=== PATIENT | female | born 1940 | race Caucasian/White ===

== ENCOUNTER → 2016-11-20 | Outpatient (CLI) | payer MEDICARE, OTHER ==
[~2016-11-20] MED LIST: ASPI-892 PO; CEFU250T PO; GLIM4TAB PO; INSU100V16 SQ; INSU100V4 IV; INSU100V5 SQ; IRB150T PO; MECL-124 PO; SITA100T PO; SMV20T PO
--- OUTSIDE RECORDS SUMMARY | 2016-11-20 10:37 | XMS REPORT | Continuity of Care Document ---
Author Author [facility] Organization [facility] Address Unknown Phone Unavailable Care Team Providers Care Extension Specialist Name Role Phone JYOTI CHAIREZ DO PCP Insurance Providers Payer Name Policy Number Subscriber Name Relationship [employer] [id number] Charisse Matos 18 Self / Same As [facility] [employer] [facility] [id number] Vel Matos E 01 Advance Directives Directive Response Recorded Date/Time Advance Directives No 04/26/15 10:21pm Resuscitation Status Full Code 04/26/15 10:21pm Problems Medical Problems Problem Onset Date Status Diabetes mellitus Unknown Active Hyperglycemia Unknown Active Medications Medication Dose Route Sig Days/Qty Instructions Order Date Discontinued Date Status Irbesartan 150 Mg PO DAILY 03/31/14 Active Simvastatin 20 Mg PO DAILY 03/31/14 Active Aspirin 81 Mg PO DAILY 03/31/14 Active Meclizine HCl 25 Mg PO THREE TIMES A DAY 03/31/14 Active Glimepiride 4 Mg PO TWICE A DAY 03/31/14 Active Sitagliptin Phosphate 100 Each PO DAILY 03/31/14 Active Insulin Human Regular 300 Units IV DIRECTED 1 Qty 03/31/14 Active Social History Social History Problem Response Recorded Date/Time Alcohol Use Denies Use 04/26/2015 10:21pm Recreational Drug Use No 04/26/2015 10:21pm Recent Foreign Travel No 04/26/2015 10:12pm Recent Infectious Disease Exposure No 04/26/2015 10:12pm Hospitalization with Isolation Denies 04/26/2015 10:12pm Smoking Status Never a Smoker 04/26/2015 10:21pm Query Response Start Date Stop Date Smoking Status Never a Smoker Hospital Discharge Instructions No hospital discharge instructions. Plan of Care No plan of care. Functional Status No functional status results. Allergies, Adverse Reactions, Alerts Allergen Type Severity Reaction Status Last Updated No Known Drug Allergies Active 03/31/14 Immunizations No immunization records. Vital Signs Acute Vital Signs Vital Response Date/Time Temperature (Fahrenheit) 98.1 degrees F (97.6 - 99.5) Temperature (Calculated Celsius) 36.43245 degrees C (36.4 - 37.5) Temperature Source Temporal Pulse Rate (adult) 107 bpm (60 - 90) Respiratory Rate 20 bpm (12 - 24) O2 Sat by Pulse Oximetry 97 % (88 - 100) Blood Pressure 171/70 mm Hg Pain Pain Intensity 0 Height (Feet) 5 feet Height (Calculated Centimeters) 152.569835 cm Weight (Pounds) 164 pounds Weight (Calculated Kilograms) 74.242424 kilograms Height 5 ft 0 in Weight 164 lb Body Mass Index 32.0 kg/m^2 Results Laboratory Results Test Name Result Units Flags Reference Collection Date/Time Result Date/ Time Comments White Blood Count 9.0 10^3/uL 4.3-11.0 04/26/2015 10:pm 04/26/2015 10 :24pm Red Blood Count 4.05 10^6/uL L 4.35-5.85 04/26/2015 10:04/26/2015 10 :24pm Hemoglobin 13.1 G/DL 11.5-16.0 04/26/2015 10:04/26/2015 10:24pm Hematocrit 39 % 35-52 04/26/2015 10:04/26/2015 10:24pm Mean Corpuscular Volume 97 FL 80-99 04/26/2015 10:04/26/2015 10: 24pm Mean Corpuscular Hemoglobin 32 PG 25-34 04/26/2015 10:04/26/2015 10:24pm Mean Corpuscular Hemoglobin Concent 33 G/DL 32-36 04/26/2015 10: 10:24pm Red Cell Distribution Width 12.8 % 10.0-14.5 04/26/2015 10:2014 10:24pm Platelet Count 325 10^3/uL 130-400 04/26/2015 10:pm 04/26/2015 10: 24pm Mean Platelet Volume 9.2 FL 7.4-10.4 04/26/2015 10:pm 04/26/2015 10: 24pm Neutrophils (%) (Auto) 82 % H 42-75 04/26/2015 10:04/26/2015 10: 24pm Lymphocytes (%) (Auto) 15 % 12-44 04/26/2015 10:pm 04/26/2015 10: 24pm Monocytes (%) (Auto) 4 % 0-12 04/26/2015 10:04/26/2015 10:24pm Eosinophils (%) (Auto) 0 % 0-10 04/26/2015 10:04/26/2015 10:24pm Basophils (%) (Auto) 0 % 0-10 04/26/2015 10:04/26/2015 10:24pm Neutrophils # (Auto) 7.3 X 10^3 1.8-7.8 04/26/2015 10:04/26/2015 10:24pm Lymphocytes # (Auto) 1.3 X 10^3 1.0-4.0 04/26/2015 10:04/26/2015 10:24pm Monocytes # (Auto) 0.3 X 10^3 0.0-1.0 04/26/2015 10:pm 04/26/2015 10: 24pm Eosinophils # (Auto) 0.0 10^3/uL 0.0-0.3 04/26/2015 10:04/26/2015 10:24pm Basophils # (Auto) 0.0 10^3/uL 0.0-0.1 04/26/2015 10:04/26/2015 10 :24pm Sodium Level 135 MMOL/L 135-145 04/26/2015 10:pm 04/26/2015 10:38pm Potassium Level 4.3 MMOL/L 3.6-5.0 04/26/2015 10:pm 04/26/2015 10: 38pm Chloride Level 103 MMOL/L 98-107 04/26/2015 10:04/26/2015 10:38pm Carbon Dioxide Level 22 MMOL/L 21-32 04/26/2015 10:17pm 04/26/2015 10: 38pm Blood Urea Nitrogen 25 MG/DL H 7-18 04/26/2015 10:17pm 04/26/2015 10: 38pm Creatinine 1.68 MG/DL H 0.60-1.30 04/26/2015 10:17pm 04/26/2015 10:38pm BUN/Creatinine Ratio 15 04/26/2015 10:17pm 04/26/2015 10:38pm Estimat Glomerular Filtration Rate 30 04/26/2015 10:172014 10:38pm GFR INTERPRETIVE DATA UNITS FOR ESTIMATED GFR (eGFR): mL/min/1.73 M2 REFERENCE RANGE FOR ESTIMATED GFR (eGFR) eGFR NORMAL eGFR >60 MODERATELY DECREASED eGFR 30-59 SEVERLY DECREASED eGFR 15-29 KIDNEY FAILURE <15 (OR DIALYSIS) Glucose Level 502 MG/DL 70-105 04/26/2015 10:17pm 04/26/2015 10:38pm RESULTS CALLED TO PABLO AT 2238. RESULTS READ BACK: YES. Glucometer 428 MG/DL 70-110 04/26/2015 10:16pm 04/26/2015 10:32pm Calcium Level 9.5 MG/DL 8.5-10.1 04/26/2015 10:17pm 04/26/2015 10:38pm Total Bilirubin 1.0 MG/DL 0.1-1.0 04/26/2015 10:17pm 04/26/2015 10: 38pm Alkaline Phosphatase 163 U/L H 40-136 04/26/2015 10:pm 04/26/2015 10: 38pm Aspartate Amino Transf (AST/SGOT) 14 U/L 5-34 04/26/2015 10:2014 10:38pm Alanine Aminotransferase (ALT/SGPT) 14 U/L 0-55 04/26/2015 10:17pm 10:38pm Total Protein 7.7 G/DL 6.4-8.2 04/26/2015 10:17pm 04/26/2015 10:38pm Albumin 3.9 G/DL 3.2-4.5 04/26/2015 10:17pm 04/26/2015 10:38pm Procedures No known history of procedures. Encounters Encounter Location Date/Time Departed Emergency Room [facility] 04/26/15 10:09pm Recent Diagnosis
--- NOTE | 2016-11-20 13:35 | Diagnostic Imaging Report ---
Bilateral screening mammogram. The current study was also evaluated with a Computer Aided Detection (CAD) system. INDICATION: Screening. No current complaints stated on the questionnaire. COMPARISON: 11/29/2015. FINDINGS: The breasts are composed of heterogeneously dense parenchyma which may decrease mammographic sensitivity. There are multiple scattered benign-appearing calcifications. Allowing for technique and positional differences, no suspicious change is seen. IMPRESSION: No significant change. ACR BI-RADS Category 2: Benign findings. Result letter will be mailed to the patient. Note: At least 10% of breast cancer is not imaged by mammography. Dictated by: Dictated on workstation # [id number]
== END ==
LOC: RAD 10:33
PROVIDERS: ATTEND Nurse Practitioner Family
DX: Z12.31 Encounter for screening mammogram for malignant neoplasm of breast (principal)

== ENCOUNTER 2017-05-19 09:47 | Outpatient (CLI) | payer MEDICARE, OTHER ==
[~2017-05-19] VITALS: Ht 152.4 cm; Wt 72.6 kg
[2017-05-19] MEDS ORDERED: LEVO75TA6 PO (10:03)
[2017-05-19] MEDS ORDERED: CYAN10006 PO (10:03)
[2017-05-19 10:07] VITALS: BP 142/71
== END 2017-05-19 10:44 | disposition home or self-care (01) ==
LOC: PREOP 09:47
PROVIDERS: ATTEND Orthopaedic Surgery
DX: Z01.818 Encounter for other preprocedural examination (principal); Z11.2 Encounter for screening for other bacterial diseases; M23.204 Derangement of unspecified medial meniscus due to old tear or injury, left knee; M17.12 Unilateral primary osteoarthritis, left knee
CPT/HCPCS: 87081

== ENCOUNTER 2017-05-26 06:00 | Day surgery (SDC) | payer MEDICARE, OTHER ==
--- NOTE | 2017-05-18 08:59 | HISTORY AND PHYSICAL ---
DATE OF ADMISSION: 05/26/2017 Outpatient surgery for left knee arthroscopy. HISTORY: The patient is a 77-year-old female with moderate left knee osteoarthritis. She has undergone treatment with injections with Synvisc, as well as steroid. She reports catching and locking and swelling in her knee. She does not desire total knee arthroplasty. She understands an arthroscopy can help with her mechanical symptoms and will not alleviate her arthritic symptoms. Due to functional impairment, the patient has elected to proceed with surgical intervention. REVIEW OF SYSTEMS: No chest pain, no shortness of breath. No dysuria. PAST MEDICAL HISTORY: 1. Allergic rhinitis. 2. Back pain. 3. Osteoarthritis. PAST SURGICAL HISTORY: 1. Tonsillectomy. 2. Appendectomy. 3. Cholecystectomy. 4. Herniorrhaphy. 5. Vein stripping. FAMILY HISTORY: Noncontributory. PRIMARY CARE PROVIDER: Dr. Mcguire. MEDICATIONS: 1. Insulin. 2. Avapro. 3. Zocor. 4. Ecotrin. 5. Meclizine. 6. Glimepiride. 7. Januvia. 8. Levothyroxine. ALLERGIES: No known drug allergies. SOCIAL HISTORY: The patient denies alcohol, tobacco use. PHYSICAL EXAMINATION: The patient well-developed, well-nourished, in no acute distress. HEENT: Normocephalic, atraumatic. Pupils are equal, round, and reactive, oropharynx is clear. NECK: Supple. No lymphadenopathy. LUNGS: Clear to auscultation bilaterally. HEART: Regular rate and rhythm. ABDOMEN: Soft, nontender, nondistended. EXTREMITY EXAM: The left knee demonstrates a slight effusion. She is tender along her medial joint line and has pain medially with Gail's. She has patellofemoral crepitus and pain with patellar loading. Range of motion 0/2/125. She is ligamentously stable in all planes. 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 PLAN: Left knee arthroscopy, partial meniscectomy and chondroplasty. The risks, benefits, options, ramifications and recovery have been discussed at length with the patient and she understands wishes to proceed. Job ID: [id number] Dictated Date: 05/17/2017 15:25:39 Grounds Maintenance Supervisor Date: 05/18/2017 08:46:44/zonia
[~2017-05-26] VITALS: Ht 152.4 cm; Wt 72.6 kg
[~2017-05-26 06:00] MED LIST changes: +CYAN10006 PO; +LEVO75TA6 PO
[2017-05-26] MEDS ORDERED: fentaNYL INJECTION 100 MCG/2 ML AMP ONE (06:31)
[2017-05-26] MEDS ORDERED: proPOfol 200 MG/20 ML (DIPRIVAN) VIAL IV ONE (06:31)
[2017-05-26] MEDS ORDERED: NS (IVPB) 50 ML ONE (06:31)
[2017-05-26] MEDS ORDERED: LACTATED RINGERS 1,000 ML IV ONE (06:31)
[2017-05-26] MEDS ORDERED: ceFAZolin 1,000 MG (ANCEF) VIAL ONE (06:31)
[2017-05-26] MEDS ORDERED: SEVOFLURANE (ULTANE) 15 ML INHAL SOLN ONE ×3 (06:31→07:54)
[2017-05-26] MEDS ORDERED: LIDOCAINE 2% 20 ML (XYLOCAINE) VIAL ONE (06:31)
[2017-05-26] MEDS ORDERED: MIDAZOLAM 2 MG/2 ML (VERSED) VIAL ONE (06:32)
[2017-05-26] MEDS ORDERED: ONDANSETRON 4 MG/2 ML (SDV) Z0FRAN ONE ×2 (06:37→09:00)
[2017-05-26] MEDS ORDERED: DEXAMETHASONE PF 10 MG/ML (DECADRON) VIAL ONE (06:37)
[2017-05-26] MEDS ORDERED: LACTATED RINGERS 1,000 ML IV PRN (06:42)
[2017-05-26] MEDS ORDERED: ceFAZolin 1 GM/NS 50 ML IVPB IV ONE ×2 (07:00)
[2017-05-26 07:01] VITALS: BP 146/84
[2017-05-26] MEDS ORDERED: morphine PF (DURAMORPH) 10 MG/10 ML AMP ONE (07:07)
[2017-05-26] MEDS ORDERED: BUPIVACAINE 0.25% 30 ML (SENSORCAINE) VIAL ONE (07:07)
--- NOTE | 2017-05-26 07:26 | Progress Note-Pre Operative ---
Pre-Operative Progress Note H&P Reviewed The H&P was reviewed, patient examined and no changes noted. Date Seen by Provider: May 26, 2017 Time Seen by Provider: 07:11 Date H&P Reviewed: May 26, 2017 Time H&P Reviewed: 07:11 Pre-Operative Diagnosis: left knee medial meniscal tear and chondromalacia CORDELIA VELEZ MD May 26, 2017 07:26
--- NOTE | 2017-05-26 07:27 | Progress Note-Post Operative ---
Post-Operative Progess Note Surgeon (s)/Photographic Artist (s) Surgeon CORDELIA VELEZ MD Photographic Artist: Galen Flynn Pre-Operative Diagnosis left knee medial meniscal tear and chondromalacia Post-Operative Diagnosis left knee medial and lateral meniscal tears and chondromalacia of the lateral femoral condyle and patella Procedure & Operative Findings Date of Procedure 05/26/17 Procedure Performed/Findings left knee arthroscopic partial medial and lateral meniscectomies and chondroplasty of the lateral femoral condyle and patella Anesthesia Type GETA Estimated Blood Loss Estimated blood loss (mL): minimal Specimens/Packing Specimens Removed none Packing: none CORDELIA VELEZ MD May 26, 2017 07:27
[2017-05-26] MEDS ORDERED: HYDROcodone/APAP 5 MG/325 MG (LORTAB) TAB PO PRN (07:30)
[2017-05-26] MEDS ORDERED: fentaNYL INJECTION 100 MCG/2 ML AMP IVP PRN (08:15)
[2017-05-26 09:15] VITALS: BP 113/99
[2017-05-26] MEDS ORDERED: HYDR-3812 PO (09:35)
[2017-05-26 09:45] VITALS: BP 128/58
[2017-05-26 10:15] VITALS: BP 130/61
--- NOTE | 2017-05-26 11:04 | Physical Therapy Ortho Eval ---
PT Orthopedic Evaluation Type of Surgery Knee Scope LEFT knee arthroscopy, medial menisectomy and chondroplasty Prior Level of Function Current Living Status: Alone Locomotion (Upon Admit): Independent Established Durable Medical Eq: Shower Chair, Front Wheeled Walker, Straight Cane Patient has one step to enter the home. She will be going home with a daughter for at least one day to recover. Subjective Subjective Pt reports she has had progressive pain and loss of function in her left knee. Steps Into Home: 1 Steps Accessories: Railing Present Motor Control Motor Control: Motor Control WNL Pt reports her knee feels better than pre surgery. ROM ROM: WFL, except focal deficit left knee flexion to 90 deg, ext -5 degrees Strength Strength: Gen Weak,No Focal Deficit quads and hams (L) knee 4/5 Transfer Transfers (B, C, W/C) (FIM): 6 Patient able to get in and out of bed without assistance. Used a FWW to make pivot transfer. She was able to make a pivot transfer without assistive device at stand by level. Gait Gait Assistive Device: FWW, Handheld Assist demonstrated safe ambulation with FWW and with hand held assistance. Weight Bearing Restriction: Weight Bearing/Tolerated Location Restriction: L LE Distance (FIM): 2=001-30 ft Distance: 50ft Gait Level of Assist: 5 Summary/Comments stand by supervision for steadying during turns. Treatment Rendered Treatment: Therapeutic Exercises, Gait Train, Step Train, Issued Written HEP Exercise Instruction: Quad Sets, Straight Leg Raise, Heel Slides issued a written home program Assessment/Goals Goal Time Frame: 1 Visit Understands HEP: Yes Safe Ambulation: Yes Plan Treatment Plan: Gait, Safety, Therapeutic Exercise Treatment Duration: 1 visit Visits Per Week: 1 PT/Family Agrees to Plan: Yes Time Time In: 1030 Time Out: 1050 Total Billed Treatment Time: 20 Billed Treatment Time visit, eval low complexity Yes PT/OT Therapy GCodes Therapy Functional Limitation: Physical Therapy Functional Limitation-Current Charge Code: MOBCUR Modifier: CI Functional Limitation-Goal Charge Code: MOBGOAL Modifier: CI Functional Limitation-D/C Charge Codes: MOBDC Modifier: CI KALANI MITCHELL PT May 26, 2017 11:04
--- NOTE | 2017-05-27 09:26 | OPERATIVE REPORT ---
PROCEDURE PHYSICIAN: CORDELIA VELEZ DATE OF PROCEDURE: 05/26/2017 PREOPERATIVE DIAGNOSIS: 1. Left knee medial meniscal tear. 2. Left knee chondromalacia of the patella. 3. Left knee chondromalacia of the medial femoral condyle. POSTOPERATIVE DIAGNOSIS: 1. Left knee medial meniscal tear. 2. Left knee lateral meniscal tear. 3. Left knee chondromalacia, lateral femoral condyle. 4. Left knee chondromalacia of the patella. PROCEDURE: 1. Left knee arthroscopic partial medial meniscectomy. 2. Left knee arthroscopic partial lateral meniscectomy. 3. Left knee arthroscopic chondroplasty of the lateral femoral condyle. 4. Left knee arthroscopic chondroplasty of the patella. SURGEON: Ana LAUNDRY LABORER: Galen Flynn who assisted throughout the procedure and closed the incisions. ANESTHESIA: General endotracheal by in David Vila CRNA. TOURNIQUET TIME: Not applicable. DRAINS: None. COMPLICATIONS: None. POSTOPERATIVE PLAN: Routine arthroscopy protocol. The patient was transported to the recovery room, awake, in stable condition. STATEMENT OF MEDICAL NECESSITY: The patient is a 77-year-old female with known arthrosis of her left knee. She also complained of catching and locking in her knee. She has undergone treatment with injections, and activity modifications without relief. She elected to proceed with arthroscopy in order to try and obtain some symptomatic relief. She understood that this would not cure her arthritic symptoms and she may also require total knee arthroplasty. Examination under anesthesia revealed range of motion of 0/2/125. No varus valgus laxity. Negative anterior and posterior drawer. No varus valgus laxity. Negative pivot shift. Arthroscopic findings: The patella demonstrated grade 2 chondral flap, superiorly in a 10 x 10 area with grade 4 chondral loss inferiorly in a 15 x 15 area. The trochlea demonstrated diffuse grade 3 chondral loss with no unstable chondral flaps. The medial and lateral gutters were clear. The medial compartment demonstrated diffuse grade 4 chondral loss over the tibial plateau and femoral condyle in 15 x 20 area adjacently on the medial aspect. In addition, there was degenerative tearing of the posterior horn and body of the medial meniscus involving approximately one half of the posterior horn and body. The ACL and PCL were intact. The lateral compartment demonstrated a degenerative tear of the posterior horn of the meniscus involving approximately 1/3rd of the posterior horn. In addition, there were grade 3 chondral flaps over the anterior aspect of the femoral condyle in a 10 x 10 area and diffuse grade 2 chondral changes of the tibial plateau in a 10 x 10 area with no unstable chondral flaps. PROCEDURE: After risks and benefits of the procedure were discussed and questions were answered an informed consent was signed and placed on chart. The operative site was confirmed in the preop holding and initialed by the surgeon. The patient was then transported to the operating room where after adequate general endotracheal anesthetic were obtained, a timeout was called confirming the operative site. Examination under anesthesia was performed with the above findings noted. The left lower extremity was prepped and draped in the usual sterile fashion. The left knee was injected with 60 mL of fluid and a standard inferolateral portal was placed under direct visualization. A medial port was created and the menisci cruciate was carefully probed with the above findings noted. The unstable chondral flaps on the patella were debrided with a shaver back to a stable edge. The scope was redirected into the lateral compartment where the unstable chondral flaps and the lateral femoral condyle were debrided with a shaver back to a stable edge. The posterior horn of the lateral meniscus was debrided with a biter and a shaver, removing approximately 1/3rd of the posterior horn. This was carefully probed with no further tearing or instability noted. The scope was then redirected into the medial compartment where the unstable posterior horn and body medial meniscus were debrided with a biter and the shaver, removing approximately one half of the posterior horn and body. This was carefully probed with no further tearing or instability noted. The knee was copiously irrigated. Port sites closed with 3-0 nylon in simple interrupted fashion. The knee was injected with Duramorph. Port sites were infiltrated with plain Marcaine. A soft dressing applied. The patient was transported to the recovery awake, in stable condition Job ID: [id number] Dictated Date: 05/26/2017 08:10:39 Vending Service Technician Date: 05/27/2017 09:16:37 / zonia
== END 2017-05-26 10:50 | disposition home or self-care (01) ==
LOC: SDC 06:00
PROVIDERS: ATTEND Orthopaedic Surgery
DX: M23.8X2 Other internal derangements of left knee (principal); M22.42 Chondromalacia patellae, left knee; E78.5 Hyperlipidemia, unspecified; E11.9 Type 2 diabetes mellitus without complications; E03.9 Hypothyroidism, unspecified; Z79.4 Long term (current) use of insulin; Z79.899 Other long term (current) drug therapy
CPT/HCPCS: 82962

== ENCOUNTER → 2017-11-22 | Outpatient (CLI) | payer MEDICARE, OTHER ==
[~2017-11-22] MED LIST changes: +ACHD5005 PO
--- NOTE | 2017-11-22 12:22 | Diagnostic Imaging Report ---
INDICATION: Routine screening. Comparison is made to prior study of 11/20/2016 and 11/29/2015. TECHNIQUE: Bilateral CC and MLO 3D mammography was performed. The current study was also evaluated with a Computer Aided Detection (CAD) system. Moderate parenchymal density is identified bilaterally. The overall parenchymal pattern is stable. Benign-appearing nodular density in the upper outer left breast appears stable. There are benign-appearing parenchymal and vascular calcifications bilaterally. No spiculated mass or malignant appearing microcalcifications are identified. The axillae are unremarkable. IMPRESSION: BI-RADS category 2 No mammographic features suspicious for malignancy are identified. ACR BI-RADS Category 2: Benign findings. Result letter will be mailed to the patient. Note: At least 10% of breast cancer is not imaged by mammography. Dictated by: Dictated on workstation # [id number]
== END ==
LOC: RAD 10:29
PROVIDERS: ATTEND Nurse Practitioner Family
DX: Z12.31 Encounter for screening mammogram for malignant neoplasm of breast (principal)
CPT/HCPCS: 77067

== ENCOUNTER 2018-03-09 06:10 | Inpatient (IN) | payer MEDICARE, OTHER ==
--- NOTE | 2018-02-28 17:23 | HISTORY AND PHYSICAL ---
DATE OF SERVICE: DATE OF ADMISSION: 03/09/2018. REASON FOR ADMISSION: Left total knee arthroplasty. This will be for regular inpatient admission. HISTORY OF PRESENT ILLNESS: The patient is a 77-year-old female with progressively worsening left knee osteoarthritis. She has undergone treatment with injections, anti-inflammatories as well as arthroscopy, but reports continued progressive functional impairment with activity limitations. Radiographs reveal severe medial patellofemoral arthrosis. Due to functional impairment and failure to improve with conservative measures, the patient has elected to proceed with surgical intervention. REVIEW OF SYSTEMS: No chest pain, no shortness of breath, no dysuria. PAST MEDICAL HISTORY: Allergic rhinitis, back pain, osteoarthritis, diabetes type 2, hyperlipidemia, hypertension. PAST SURGICAL HISTORY: Tonsillectomy, appendectomy, cholecystectomy, vein stripping, herniorrhaphy and knee arthroscopy. SOCIAL HISTORY: The patient denies alcohol or tobacco use. FAMILY HISTORY: Noncontributory. PRIMARY CARE PROVIDER: Dr. Mcguire. MEDICATIONS: Insulin, Avapro, Zocor, Ecotrin, meclizine, glimepiride, Januvia, levothyroxine, vitamin B12, hydrocodone. ALLERGIES: No known drug allergies. PHYSICAL EXAMINATION: GENERAL: The patient is well developed, well nourished, in no acute distress. HEENT: Normocephalic, atraumatic. Pupils are equal, round and reactive to light. Oropharynx is clear. NECK: Supple, no lymphadenopathy. LUNGS: Clear to auscultation bilaterally. HEART: Regular rate and rhythm. ABDOMEN: Soft, nontender, nondistended. EXTREMITIES: The left knee demonstrates a slight effusion. There is no erythema or warmth. Range of motion is 0/0/120. She is tender along the medial femoral condyle and has pain medially with Gail's. She has to have assistance to rise from a seated position. She ambulates with an antalgic gait. There is no varus valgus laxity. Negative anterior and posterior drawer. IMPRESSION: Severe left knee osteoarthritis, unresponsive to conservative measures. PLAN: Left total knee arthroplasty. The risks, benefits, options, ramifications and recovery were discussed at length with the patient who understands and wishes to proceed. She will require a regular inpatient admission due to pain management, gait abnormalities and weakness. Job ID: [id number] DocumentID: [id number] Dictated Date: 02/28/2018 16:18:21 Supervisor Engine Assembly Date: 02/28/2018 17:22:39 Dictated By: CORDELIA VELEZ MD
[~2018-03-09] VITALS: Ht 152.4 cm; Wt 74.2 kg
[~2018-03-09 06:10] MED LIST changes: +ASPI-999 PO; +MECL-106 PO; +SIMV20TA3 PO; +SITA100T12 PO
[2018-03-09] MEDS ORDERED: fentaNYL INJECTION 100 MCG/2 ML AMP ONE ×2 (06:43→08:06)
[2018-03-09] MEDS ORDERED: MIDAZOLAM 2 MG/2 ML (VERSED) VIAL ONE (06:43)
[2018-03-09] MEDS ORDERED: LIDOCAINE PF 2% 5 ML (XYLOCAINE) VIAL ONE (06:43)
[2018-03-09] MEDS ORDERED: proPOfol 200 MG/20 ML (DIPRIVAN) VIAL IV ONE (06:43)
[2018-03-09] MEDS ORDERED: SEVOFLURANE (ULTANE) 15 ML INHAL SOLN ONE ×7 (06:43→09:13)
[2018-03-09] MEDS ORDERED: ONDANSETRON 4 MG/2 ML (SDV) Z0FRAN ONE ×2 (06:43→09:50)
[2018-03-09] MEDS ORDERED: CEFUROXIME 1.5 GM/NS 100 ML IVPB IV ONE ×2 (06:45)
[2018-03-09] MEDS ORDERED: CATHETER FLUSH 10 ML SYR IV PRN (06:45)
[2018-03-09] MEDS ORDERED: CEFUROXIME INJECTION 1,500 MG in NS (IVPB) 100 ML IV ONE (07:00)
[2018-03-09] MEDS: LACTATED RINGERS 1,000 ML IV PRN ×2 (07:07→08:00)
[2018-03-09 07:12] VITALS: BP 180/90
[2018-03-09] MEDS ORDERED: diphenhydrAMINE 50 MG/ML INJ (BENADRYL) IVP PRN (07:15)
[2018-03-09] MEDS ORDERED: ACETAMINOPHEN 325 MG TABLET/CAPLET (TYLENOL) PO PRN (07:15)
[2018-03-09] MEDS ORDERED: morphine PCA 30 MG/30 ML VIAL IV PRN (07:15)
[2018-03-09] MEDS ORDERED: INTRA-ARTICULAR IU ONE ×5 (07:30)
--- NOTE | 2018-03-09 07:32 | Progress Note-Pre Operative ---
Pre-Operative Progress Note H&P Reviewed The H&P was reviewed, patient examined and no changes noted. Date Seen by Provider: March 09, 2018 Time Seen by Provider: 07:25 Date H&P Reviewed: March 09, 2018 Time H&P Reviewed: 07:25 Pre-Operative Diagnosis: left knee primary osteoarthritits CORDELIA VELEZ MD March 09, 2018 07:32
--- NOTE | 2018-03-09 07:33 | Progress Note-Post Operative ---
Post-Operative Progess Note Surgeon (s)/Quad Stayer (s) Surgeon CORDELIA VELEZ MD Quad Stayer: Galen Flynn Pre-Operative Diagnosis left knee primary osteoarthritits Post-Operative Diagnosis left knee primary osteoarthritis Procedure & Operative Findings Date of Procedure 03/09/18 Procedure Performed/Findings left total knee arthroplasty Anesthesia Type GETA Estimated Blood Loss Estimated blood loss (mL): MINIMAL Specimens/Packing Specimens Removed none Packing: none CORDELIA VELEZ MD March 09, 2018 07:33
[2018-03-09] MEDS ORDERED: OXYC-197 PO (07:34)
--- NOTE | 2018-03-09 07:36 | D/C HH Face to Face Order ---
D/C Face to Face Orders Instructions for Patient Patient Instructions/FollowUp: three weeks Physician to follow Patient: three weeks Discharge Diet for Home: Regular Diet, ADA Diet Patient Data-Allergies,Ht & Wt Patient Allergies: Uncoded Allergies: STEROIDS (Allergy, Intermediate, 02/28/16) Height (Feet): 5 Height (Inches): 0.00 Weight (Pounds): 163 Weight (Ounces): 9.0 Home Health Need/Face to Face Date of Face to Face: March 09, 2018 Clinical Findings: Instability, Muscle weakness, Non or partial weight bearing , Pain with ambulation, Unsteady gait I have seen Pt [id number]: Yes Discharged To: Home Diagnosis/Conditions: left total knee arthroplasty Patient is Homebound due to: Morales fall risk due to instabilty, Pain w/ ambulation Homebound Status Due to the above stated illness, injury or surgical procedure (medical condition or diagnosis) and associated clinical findings, the patient is homebound because of his/her inability to leave home except with aid of a supportive device and/or person AND leaving the home requires a considerable and taxing effort or is medically contraindicated. Pt req the following assistanc: Walker Home Health Nursing Orders Home Health Services Order: Physical Therapy-Evaluate & Treat Home Health Infusion Therapy Line Start Date: March 09, 2018 Line Start Time: 0630 Line Type: Peripheral IV Site Location: Forearm Therapy Orders Therapy Orders: PT to assess for OT Therapy Specific Orders: Eval assistive deivces, Teach enviro modifications/ safety, Gait training, Increase strength/endurance, Restore ROM Certify Stmt I certify that this patient is under my care and that I, a nurse practitioner or a physician; a assistant public defender working with me, had a face to face encounter that - meets the physician face to face encounter requirements with this patient as dated. CORDELIA VELEZ MD March 09, 2018 07:36
[2018-03-09] MEDS ORDERED: morphine INJ 10 MG/ML 1ML (SYR OR VIAL) ONE (09:12)
[2018-03-09] MEDS: morphine INJ 10 MG/ML 1ML (SYR OR VIAL) IVP PRN ×2 (09:53→09:57)
--- NOTE | 2018-03-09 09:59 | Progress Note-Standard ---
Standard Progress Note Progress Notes/Assess & Plan Date Seen by Provider: March 09, 2018 Time Seen by Provider: 09:57 Progress/Assessment & Plan POST OP check no complaints. denies paresthesias radiographs--HW well positioned. No fractures LLE--2 plus DP pulse with brisk cap refill. intact DF and PF of toes and ankle. Sensation intact throughout s/p LTKA mobilize as able CORDELIA VELEZ MD March 09, 2018 09:59
[2018-03-09] MEDS ORDERED: HYDROmorphone 2 MG/ML VIAL (DILAUDID) IVP PRN (10:00)
[2018-03-09] MEDS ORDERED: ONDANSETRON 4 MG/2 ML (SDV) Z0FRAN IVP PRN (10:00)
[2018-03-09 10:20] VITALS: BP 153/67
[2018-03-09] MEDS: ONDANSETRON 4 MG/2 ML (SDV) Z0FRAN IVP PRN ×2 (10:24→15:16)
[2018-03-09] MEDS: SENNA W/DOCUSATE (SENOKOT S) TABLET PO SCH ×2 (10:34→19:53)
[2018-03-09] MEDS ORDERED: PROMETHAZINE INJ 25 MG/ML (PHENERGAN) AMP IVP STA (10:44)
[2018-03-09] MEDS: NS IV 1000 ML 1,000 ML IV SCH ×2 (10:57→23:42)
--- NOTE | 2018-03-09 10:58 | Diagnostic Imaging Report ---
EXAMINATION: Left knee at 9:30 AM. INDICATION: Postop total knee. TECHNIQUE: AP and lateral views were received from the OR. COMPARISON: There are no prior studies available for comparison. FINDINGS: There is a total knee prosthesis in place. The prosthetic components appear to be in good position. There is no fracture or acute bony abnormality evident. There is a fair amount of gas about the knee joint and there are skin daryl on the anterior aspect of the joint. IMPRESSION: Stable postoperative left knee. Dictated by: Dictated on workstation # [id number]
[2018-03-09] MEDS: PROMETHAZINE INJ 25 MG/ML (PHENERGAN) AMP IVP PRN ×2 (11:20→19:46)
[2018-03-09 12:00] VITALS: BP 176/80
[2018-03-09] MEDS: CEFUROXIME INJECTION 750 MG in NS (IVPB) 50 ML IV SCH ×2 (15:16→23:42)
[2018-03-09 15:50] VITALS: BP 143/71
--- NOTE | 2018-03-09 15:50 | Physical Therapy Evaluation ---
PT Evaluation-General Medical Diagnosis Admission Date March 09, 2018 at 06:10 Medical Diagnosis: left TKA Onset Date: March 09, 2018 Therapy Diagnosis Therapy Diagnosis: impaired mobility, strength, endurance, ROM Height/Weight Height (Feet): 5 Height (Inches): 0.00 Weight (Pounds): 163 Weight (Ounces): 9.0 Precautions Precautions/Isolations: Standard Precautions Weight Bear Status Right Lower Extremity: Right Weight Bearing/Tolerated Left Lower Extremity: Left Weight Bearing/Tolerated Referral Physician: Galen Flynn Reason for Referral: Evaluation/Treatment Medical History Pertinent Medical History: DM, HTN, OA Additional Medical History allergic rhinitis, back pain, hyperlipidemia, surg (tonsillectomy, appendectomy , cholecystectomy, vein stripping, herniorrhaphy, knee arthroscopy) Reviewed History: Yes Social History Home: Single Level Current Living Status: Alone Entry Into Home: Stairs With Railing PT Steps Into Home: 2 Prior/Core FIM Prior Level of Function Functional [place] Measure 0=Not Assessed/NA 4=Minimal Assistance 1=Total Assistance 5=Supervision or Setup 2=Maximal Assistance 6=Modified [place] 3=Moderate Assistance 7=Complete [place] Bed Mobility: 7 Transfers (B,C,W/C) (FIM): 7 Gait: 7 patient states she has a single point cane that she used on occasion, but not often PT Evaluation-Current Subjective Patient in bed pre tx, agrees to PT, no complaints of pain. Patient has been nauseated all morning and is still nauseated, she also needs to use the commode. Pt/Family Goals to be independent at home Objective Patient Orientation: Person, Place, Situation Attachments: SCD's, Oxygen, Polar Pack, IV ROM/Strength ROM Lower Extremities left knee flexion 85 degrees, extension 20 degrees from neutral Strength Lower Extremities NT Neuromuscular (Tone, Coordination, Reflexes) NT Sensory Hearing: Functional Sensation Right Lower Extremit: Intact Sensation Left Lower Extremity: Intact Transfers Functional [place] Measure 0=Not Assessed/NA 4=Minimal Assistance 1=Total Assistance 5=Supervision or Setup 2=Maximal Assistance 6=Modified [place] 3=Moderate Assistance 7=Complete [place] Transfers (B, C, W/C) (FIM): 4 Scootin Rollin Supine to/from Sit: 4 Sit to/from Stand: 4 bed t/f WC(FIM only if WC use): 4 Patient needs min assist for bed mobility, supine to sit, transfers. Cues for hand placement. Patient got nauseated immediately upon sitting and had to use the santoyo. Gait Gait (FIM): 1 Distance: 3 Gait Level of Assist: 4 Gait Persons Needed: 1 Gait Assistive Device: FWW Balance Sitting Static: Good Sitting Dynamic: Good Standing Static: Fair Standing Dynamic: Fair Treatment Supine TKA protocol x10 (AP, QS, HS, SAQ, SLR), CPM donned and adjusted to her and set at 60/-2, SCD's also applied Assessment/Needs Patient was very drowsy and nauseated. She has fairly severe impairment in knee extension at this point. Rehab Potential: Fair PT Short Term Goals Short Term Goals Time Frame: March 16, 2018 Transfers (B,C,W/C) (FIM): 5 Gait (FIM): 4 Gait Distance Comment: 150' Gait Assistive Device: FWW PT Plan Problem List Problem List: Activity Tolerance, Functional Strength, Safety, Balance, Gait, Transfer, Bed Mobility, ROM Treatment/Plan Treatment Plan: Continue Plan of Care Treatment Plan: Bed Mobility, Education, Functional Activity Gillian, Functional Strength, Gait, Safety, Therapeutic Exercise, Transfers Treatment Duration: March 16, 2018 Frequency: At least 5 of 7 days/Wk (IRF) Estimated Hrs Per Day: 1.5 hours per day Patient and/or Family Agrees t: Yes Safety Risks/Education Patient Education: Gait Training, Transfer Techniques, Reviewed Use of Ice, Correct Positioning, Safety Issues Teaching Recipient: Patient Teaching Methods: Demonstration, Discussion Response to Teaching: Reinforcement Needed Discharge Recommendations Plan Patient will perform bed mobility and transfer training, balance and endurance training, functional strengthening, stair training, gait training, and education , to improve functional mobility and independence at home. Therapy D/C Recommendations: Home w/ Family Support Time/GCodes Time In: 1500 Time Out: 1530 Total Billed Treatment Time: 30 Total Billed Treatment 1 visit EVRussell 20' EX 10' ELISA GORDON PT March 09, 2018 15:49
--- NOTE | 2018-03-09 18:21 | OPERATIVE REPORT ---
DATE OF SERVICE: 03/09/2018 PREOPERATIVE DIAGNOSIS: Left knee primary osteoarthritis. POSTOPERATIVE DIAGNOSIS: Left knee primary osteoarthritis. PROCEDURE: Left total knee arthroplasty. SURGEON: Zi Velez MD TEST DESIGN ENGINEER: Galen Flynn, who assisted throughout the procedure and closed the incision. ANESTHESIA: General endotracheal by Kaci Duncan CRNA. TOURNIQUET TIME: Approximately 70 minutes at 300 mmHg. ESTIMATED BLOOD LOSS: Minimal. DRAINS: None. COMPLICATIONS: None. POSTOPERATIVE PLAN: Routine protocol. The patient was transferred to the recovery room awake and in stable condition. MATERIALS: MicroPort cemented size 2 femur, cemented size 2+ tibia with a 10 mm insert and cemented size 29 patella. STATEMENT OF MEDICAL NECESSITY: The patient is an 78-year-old female who has had longstanding progressive left knee pain. Radiographs revealed severe medial and patellofemoral arthrosis. She has undergone treatment with arthroscopy, injections and activity modifications without relief and due to functional impairment and failure to improve with conservative measures, the patient elected to proceed with surgical intervention. DESCRIPTION OF PROCEDURE After risks and benefits of the procedure were discussed and questions were answered, and informed consent was signed and placed on the chart. The operative site was confirmed in the preoperative holding area initialed by the surgeon. The patient was then transferred to the operating room and after adequate levels of general endotracheal anesthetic was obtained a timeout was called confirming the operative site. The left lower extremity was then prepped and draped in the usual sterile fashion with the leg elevated and the knee flexed. Tourniquet was inflated to 300 mmHg. A standard anterior approach was utilized. Hemostasis was obtained with cautery. A medial parapatellar arthrotomy was performed leaving 1 cm cuff for later reattachment. A portion of the fat pad was resected. A subperiosteal release was performed on the proximal medial tibia being careful to stay on the bony surface. The ACL was resected. The intramedullary guide was passed into the femur and the distal cutting block was placed. Distal cut was made and the sizer was placed. This was sized to a size 2. The 2 cutting block was placed parallel to the epicondylar axis and cuts were made from posterior to anterior. The trochlear guide was place and trochlear cut was made. Subperiosteal release was then carefully performed on the posterior distal femur, being careful to stay on the bony surface. Intramedullary guide was then passed into the tibia. The cutting block was placed. The drop chau transected the intramedullary axis and the cut was made. The 2+ baseplate was placed and pinned into position. Again, the drop chau transected the intramedullary axis was prepared with a drill and keel punch. The trials were inserted. A 10 mm insert was placed. The patella was then prepared using free hand technique by resecting 10 mm off the undersurface. The peg guide was placed and the peg holes were drilled. The patellar trial was placed. The patella tracked well. Full extension was easily obtained, 120 degrees of flexion with gravity was easily obtained. The patella tracked well. There was no anterior/posterior or medial/lateral laxity in flexion or extension. The trials were removed. The joint was irrigated with pulse lavage. The periarticular block was placed and the posterior capsule, medial and lateral retinaculum and extensor mechanism, subcutaneous tissues. The joint was further irrigated and the bone ends were irrigated and dried. The tibial baseplate was cemented into position. Excess of cement was removed. The superior surface was irrigated and dried and the polyethylene insert was placed. Distal femur was irrigated and dried and the femoral prosthesis was cemented into position removing excessive cement. The knee was brought out into full extension until the cement had cured. The undersurface of the patella was irrigated and dried and the patellar button was cemented into position. This was held in place with cement and cured. Once the cement cured, the knee was taken through range of motion. Full extension was easily obtained 120 degrees of flexion with gravity was easily obtained. The patella tracked well. There was no anterior/posterior or medial/lateral laxity in flexion or extension. The joint was further irrigated with pulse lavage. The arthrotomy was closed with #2 Tevdek in kavlce-jw-glhus interrupted fashion. The knee was then flexed. The repair was stable with a well tracking patella. Subcutaneous tissues were irrigated using a total of 6 liters throughout the procedure. A 0 Vicryl was used for deep subcutaneous tissue, 2-0 Vicryl for the superficial subcutaneous tissue, and daryl used on the skin. A soft dressing was applied. The tourniquet was deflated. The patient was transported to recovery room, awake and in stable condition. Job ID: [id number] DocumentID: [id number] Dictated Date: 03/09/2018 09:23:17 Manager Of Marketing Date: 03/09/2018 18:20:55 Dictated By: ZI VELEZ MD
[2018-03-09 19:05] VITALS: BP 142/72
[2018-03-10] VITALS (7 sets, daily range): BP systolic 114–176; BP diastolic 56–78
[2018-03-10 05:46] LABS: HEMOGLOBIN 11.1 G/DL (11.5-16.0)
--- NOTE | 2018-03-10 07:23 | Anesthesia-General Post-Op ---
General Patient Condition Mental Status/LOC: Same as Preop Cardiovascular: Satisfactory Nausea/Vomiting: Absent Respiratory: Satisfactory Pain: Controlled Complications: Absent Post Op Complications Complications None Follow Up Care/Instructions Patient Instructions None needed. Anesthesia/Patient Condition Patient Condition Patient is doing well, no complaints, stable vital signs, no apparent adverse anesthesia problems. No complications reported per nursing. D/C home per [facility] Criteria: Yes KLAUS JEAN BAPTISTE CRNA March 10, 2018 07:23
--- NOTE | 2018-03-10 07:45 | Progress Note-Standard ---
Standard Progress Note Progress Notes/Assess & Plan Date Seen by Provider: March 10, 2018 Time Seen by Provider: 07:44 Progress/Assessment & Plan POST OP check no complaints. denies paresthesias radiographs--HW well positioned. No fractures LLE--2 plus DP pulse with brisk cap refill. intact DF and PF of toes and ankle. Sensation intact throughout s/p LTKA mobilize as able Final Diagnosis Nausea improved Vital Signs Date Time Temp Pulse Resp B/P (MAP) Pulse Ox O2 Delivery O2 Flow Rate FiO2 03/10/18 04:00 96.4 100 18 162/72 (102) 99 Nasal Cannula 2.00 03/10/18 00:00 98.6 104 17 176/78 (110) 92 Nasal Cannula 3.00 03/09/18 23:41 Nasal Cannula 3.00 03/09/18 19:05 98.8 98 18 142/72 (95) 93 Nasal Cannula 3.00 03/09/18 15:50 98.5 95 18 143/71 (95) 99 Nasal Cannula 3.00 03/09/18 12:00 97.3 94 16 176/80 (112) 99 Room Air 03/09/18 10:20 97.3 87 16 153/67 (95) 98 Room Air I & O 03/10/18 07:00 Intake Total 100 ml Output Total 400 ml Balance -300 ml Laboratory Tests Test 03/09/18 09:27 03/09/18 11:35 03/09/18 15:50 03/09/18 20:50 Range/Units Glucometer 117 H 227 H 227 H 223 H 70-110 MG/DL Test 03/10/18 04:47 03/10/18 07:07 Range/Units Hemoglobin 11.1 L 11.5-16.0 G/DL Hematocrit 33 L 35-52 % Glucometer 245 H 70-110 MG/DL LLE--dressing intact. NVI distally. Neg Reny's s/p LTKA PT/OT CORDELIA VELEZ MD March 10, 2018 07:45
[2018-03-10] MEDS: NS IV 1000 ML 1,000 ML IV SCH ×2 (08:13→13:42)
[2018-03-10] MEDS: ONDANSETRON 4 MG/2 ML (SDV) Z0FRAN IVP PRN (08:29)
[2018-03-10] MEDS: MULTIVIT W/MINERALS TAB (THERAGRAN M) PO SCH (08:31)
[2018-03-10] MEDS: SENNA W/DOCUSATE (SENOKOT S) TABLET PO SCH ×2 (08:31→21:00)
[2018-03-10] MEDS: ENOXAPARIN 30 MG/0.3 ML (LOVENOX) SYR SC SCH ×2 (08:31→20:51)
[2018-03-10] MEDS: ASPIRIN E.C. 81 MG (ECOTRIN) TAB PO SCH ×2 (08:31→09:39)
[2018-03-10] MEDS: oxyCODONE/APAP 5/325MG (PERCOCET 5) TABLET PO PRN ×2 (08:53→13:04)
--- NOTE | 2018-03-10 09:03 | Consultation ---
History of Present Illness History of Present Illness Patient Consulted On(jayson/time) 03/10/18 09:01 Date Seen by Provider: March 10, 2018 Time Seen by Provider: 09:01 Reason for Visit: LEFT KNEE REPLACEMENT History of Present Illness PT IS AN 78 Y/O FEMALE WHO IS KNOWN TO ME FROM CLINIC. SHE HAS CHRONIC OA OF HER KNEES AND DR. VELEZ PERFORMED A TOTAL KNEE REPLACEMENT YESTERDAY. STAFF NOTES THAT HER DIABETES IS NOT WELL CONTROLLED DURING THE NIGHT LAST NIGHT. Allergies and Home Medications Allergies Uncoded Allergies: STEROIDS (Allergy, Intermediate, 02/28/16) Home Medications Aspirin 81 Mg Tab.chew, 81 MG PO DAILY, (Reported) Cyanocobalamin (Vitamin B-12) 1,000 Mcg Tablet, 1,000 MCG PO DAILY, (Reported) Glimepiride 4 Mg Tablet, 4 MG PO DAILY, (Reported) Insulin Aspart 100 Unit/1 Ml Susp, 12 UNIT SQ EVENING MEAL, (Reported) Insulin Determir 1,000 Units/10 Ml Soln, 22 UNITS SQ Q12H, (Reported) Levothyroxine Sodium 75 Mcg Tablet, 75 MCG PO DAILY, (Reported) Meclizine HCl 25 Mg Tablet, 25 MG PO TID, (Reported) Oxycodone HCl/Acetaminophen 1 Each Tablet, 1 EACH PO Q4H Prescribed by: CORDELIA VELEZ on 03/09/18 0734 Simvastatin 20 Mg Tablet, 20 MG PO HS, (Reported) Sitagliptin Phosphate 100 Mg Tablet, 50 MG PO DAILY, (Reported) Patient Home Medication List Home Medication List Reviewed: Yes Past Jcisshw-Mvckyi-Ogvoga Hx Past Med/Social Hx: Reviewed Nursing Past Med/Soc Hx, Reviewed and Corrections made Patient Social History Alcohol Use: Denies Use Recreational Drug Use: No Smoking Status: Never a Smoker Recent Foreign Travel: No Contact w/Someone Who Travel: No Recent Infectious Disease Expo: No Recent Hopitalizations: No Immunizations Up To Date Tetanus Booster (TDap): Unknown Date of Pneumonia Vaccine: May 19, 2013 Date of Influenza Vaccine: Aug 10, 2016 Seasonal Allergies Seasonal Allergies: No Past Medical History Surgeries: Yes (VEIN STRIPPING, HERNIA, BLADDER TIE UP, LEFT KNEE SCOPE) Appendectomy, Gallbladder, Hysterectomy, Tonsillectomy Respiratory: No Cardiac: Yes High Cholesterol, Hypertension Neurological: No Reproductive Disorders: No VASCULAR SPECIALISTS History: Hysterectomy Sexually Transmitted Disease: No HIV/AIDS: No Genitourinary: No UTI-Chronic Gastrointestinal: No Musculoskeletal: Yes (KNEE PROBLEMS, OSTEOARTHRITIS LEFT KNEE) Arthritis Endocrine: Yes Diabetes, Insulin dep HEENT: Yes Loss of Vision: Bilateral Hearing Impairment: Denies Cancer: No Psychosocial: No Integumentary: No Blood Disorders: No Adverse Reaction/Blood Tranf: No (N/A) Family Medical History Reviewed Nursing Family Hx Diabetes, Hypertension Review of Systems-General Constitutional: No chills, No dizziness, No malaise EENTM: No hoarseness, No throat pain Respiratory: No cough, No dyspnea on exertion, No short of breath Cardiovascular: No edema, No palpitations Gastrointestinal: No abdominal pain; nausea, vomiting Genitourinary: No dysuria, No frequency : No Musculoskeletal: joint swelling, muscle weakness Skin: No dryness, No lesions Psychiatric/Neurological: Weakness All Other Systems Reviewed Negative Unless Noted: Yes Physical Exam-General Problems Physical Exam Vital Signs Vital Signs - First Documented 03/09/18 03/09/18 07:12 15:50 Temp 98.9 Pulse 88 Resp 16 B/P (MAP) 180/90 (120) Pulse Ox 96 O2 Delivery Room Air O2 Flow Rate 3.00 Capillary Refill : General Appearance: WD/WN, mild distress ( TO NAUSEA) Eyes: Bilateral Eye Normal Inspection, Bilateral Eye PERRL, Bilateral Eye EOMI HEENT: PERRL/EOMI, pharynx normal Neck: non-tender, supple, normal inspection Respiratory: chest non-tender, lungs clear, normal breath sounds, no respiratory distress Cardiovascular: regular rate, rhythm Gastrointestinal: normal bowel sounds, non tender, soft, no organomegaly, no pulsatile mass Rectal: deferred Back: normal inspection Extremities: normal range of motion, no pedal edema Neurologic/Psychiatric: head trimmer II-XII nml as tested, no motor/sensory deficits, alert, normal mood/affect, oriented x 3 Skin: warm/dry Assessment/Plan Assessment/Plan Admission Diagnosis/Plan LEFT TOTAL KNEE REPLACEMENT HYPOTHYROIDISM DIABETES MELLITUS POST-OPERATIVE NAUSEA AND EMESIS LEFT TOTAL KNEE REPLACEMENT - DEFER TO DR. VELEZ HYPOTHYROIDISM - RESUME HOME MEDICATIONS DIABETES MELLITUS - RESUME HOME MEDICATIONS - CHECK SERIAL FSBS POST-OPERATIVE NAUSEA AND EMESIS - SLOWLY ADVANCE DIET - CONTINUE WITH IV ANTIEMETICS PT REPORTS SHE WILL BE GOING TO STAY WITH HER GRANDSON UPON DISCHARGE Admission Status: Inpatient Order (span 2 midnights) Reason for Inpatient Admission: KNEE REPLACEMENT - NECESSITATES MORE THAN 2 [facility] STAY Clinical Quality Measures DVT/VTE Risk/Contraindication: Risk Factor Score Per Nursin RFS Level Per Nursing on Admit: 4+=Very High RICHARD ROSARIO MD March 10, 2018 09:03
[2018-03-10] MEDS: ASPIRIN 81 MG CHEW (CHILDREN'S ASA) PO SCH (09:38)
--- NOTE | 2018-03-10 09:41 | Physical Therapy Daily Note ---
PT Daily Note-Current Subjective Patient agrees to PT. Patient c/o nausea. Pain Numeric Pain Scale: 10-Worst Possible Pain Location: Left Location Body Site: Knee Pain Description: Acute Mental Status Patient Orientation: Normal For Age Attachments: IV Transfers Functional [place] Measure 0=Not Assessed/NA 4=Minimal Assistance 1=Total Assistance 5=Supervision or Setup 2=Maximal Assistance 6=Modified [place] 3=Moderate Assistance 7=Complete IndependenceIRFPAI Quality Coding Scale 6 Independent with activity with or without an assistive device 5 Patient requires set up or clean up by helper. Patient completes activity by themselves 4 Supervision or touching assist (CGA). [place] provide cues , steadying assist 3 The helper provides less than half the effort to complete the activity 2 The helper provides more than half the effort to complete the activity 1 Dependent. The helper does all the effort to complete an activity 7 Patient refused to complete or attempt activity 9 The patient did not perform the activity before the current illness or injury 88 Not attempted due to Medical conditions or safety concerns Transfers (B, C, W/C) (FIM): 3 Scootin Supine to/from Sit: 4 Sit to/from Stand: 5 Patient fatigued during gait training and required mod assist to safely get to commode. Weight Bearing Right Lower Extremity: Right Weight Bearing/Tolerated Left Lower Extremity: Left Weight Bearing/Tolerated Gait Training Gait (FIM): 2 Distance (FIM): [phone] ft Distance: 55' Gait Level of Assist: 3 Gait Persons Needed: 1 Gait Assistive Device: FWW bilateral flexed knee and trunk due to weakness/fatigue/decreased eamon and gait sequence Exercises Supine Ex: Ankle pumps, Quad Set, Heel Slides Supine Reps: 15 (in recliner) Seated Therapy Exercises: Ankle pumps, Long arc quads Seated Reps: 20 Assessment Patient requires time to complete all functional tasks and fatigues very quickly with minimal activity. PT Short Term Goals Short Term Goals Time Frame: March 16, 2018 Transfers (B,C,W/C) (FIM): 5 Gait (FIM): 4 Gait Distance Comment: 150' Gait Assistive Device: FWW PT Plan Treatment/Plan Treatment Plan: Continue Plan of Care Treatment Plan: Bed Mobility, Education, Functional Activity Gillian, Functional Strength, Gait, Safety, Therapeutic Exercise, Transfers Treatment Duration: March 16, 2018 Frequency: At least 5 of 7 days/Wk (IRF) Estimated Hrs Per Day: 1.5 hours per day Patient and/or Family Agrees t: Yes Time/GCodes Time In: 815 Time Out: 858 Total Billed Treatment Time: 43 Total Billed Treatment 1 visit GT x 2 23 min EX 20 min RAFFY MARIEE PT March 10, 2018 09:41
[2018-03-10] MEDS: PROMETHAZINE INJ 25 MG/ML (PHENERGAN) AMP IVP PRN (10:02)
[2018-03-10] MEDS: CYANOCOBALAMIN 1,000 MCG (VITAMIN B-12) TABLET PO SCH (12:29)
[2018-03-10] MEDS: GLIMEPIRIDE 4 MG (AMARYL) TAB PO SCH (12:29)
[2018-03-10] MEDS: inSUlin DETERMIR 1 UNIT/0.01 ML (LEVEMIR) CHARGE PER UNIT SQ SCH ×2 (12:29→20:52)
[2018-03-10] MEDS: LINAGLIPTIN (TRADJENTA) 5 MG TABLET PO SCH (12:29)
[2018-03-10] MEDS: LEVOTHYROXINE 75 MCG (LEVOTHROID) TABLET PO SCH (12:29)
--- NOTE | 2018-03-10 13:54 | Physical Therapy Daily Note ---
PT Daily Note-Current Subjective Patient agrees to PT. Pain Numeric Pain Scale: 5-Moderate Pain Location: Right Location Body Site: Knee Pain Description: Acute Mental Status Patient Orientation: Normal For Age Attachments: IV Transfers Functional [place] Measure 0=Not Assessed/NA 4=Minimal Assistance 1=Total Assistance 5=Supervision or Setup 2=Maximal Assistance 6=Modified [place] 3=Moderate Assistance 7=Complete IndependenceIRFPAI Quality Coding Scale 6 Independent with activity with or without an assistive device 5 Patient requires set up or clean up by helper. Patient completes activity by themselves 4 Supervision or touching assist (CGA). [place] provide cues , steadying assist 3 The helper provides less than half the effort to complete the activity 2 The helper provides more than half the effort to complete the activity 1 Dependent. The helper does all the effort to complete an activity 7 Patient refused to complete or attempt activity 9 The patient did not perform the activity before the current illness or injury 88 Not attempted due to Medical conditions or safety concerns Weight Bearing Right Lower Extremity: Right Weight Bearing/Tolerated Left Lower Extremity: Left Weight Bearing/Tolerated Exercises Supine Ex: Ankle pumps, Quad Set, Heel Slides, Straight leg raise Supine Reps: 15 (AAROM left LE) Assessment Patient was on CPM prior to exercise. PT repositioned CPM, bed and put ice in the polar pack after exercise. CPM 0-[address] PT to increase activity as tolerated by patient. PT Short Term Goals Short Term Goals Time Frame: March 16, 2018 Transfers (B,C,W/C) (FIM): 5 Gait (FIM): 4 Gait Distance Comment: 150' Gait Assistive Device: FWW PT Plan Treatment/Plan Treatment Plan: Continue Plan of Care Treatment Plan: Bed Mobility, Education, Functional Activity Gillian, Functional Strength, Gait, Safety, Therapeutic Exercise, Transfers Treatment Duration: March 16, 2018 Frequency: At least 5 of 7 days/Wk (IRF) Estimated Hrs Per Day: 1.5 hours per day Patient and/or Family Agrees t: Yes Time/GCodes Time In: 1321 Time Out: 1335 Total Billed Treatment Time: 14 Total Billed Treatment 1 visit EX 14 min RAFFY MARIEE PT March 10, 2018 13:54
--- NOTE | 2018-03-10 14:27 | Occ Therapy Progress Note ---
Therapy Progress Note OT order received. Chart reviewed. Attempted treatment this morning. Pt. up in chair with santoyo in front. Family in room. Expressed that pt. has vomitted several times. Pt. attempting to talk with OT but somewhat confused. Family member recognizes that she is confused. Spoke with nursing. Pt. has had medication for vomitting that has made her confused. Will attempt evaluation in a.m. 1, visit ill 1130 NIKO AVERY OT March 10, 2018 14:27
[2018-03-10] MEDS: inSUlin ASPART (NovoLOG) 1 UNIT/0.01 ML (CHARGE PER UNIT) SC SCH (17:19)
[2018-03-10] MEDS: SIMvastatin 20 MG (ZOCOR) TAB PO SCH (20:50)
[2018-03-11] MEDS: NS IV 1000 ML 1,000 ML IV SCH (03:00)
[2018-03-11 04:00] VITALS: BP 157/75
[2018-03-11 06:13] LABS: HEMOGLOBIN 9.1 G/DL (11.5-16.0)
[2018-03-11] MEDS: LEVOTHYROXINE 75 MCG (LEVOTHROID) TABLET PO SCH (06:45)
--- NOTE | 2018-03-11 06:51 | Progress Note ---
Subjective Date Seen by Provider: March 11, 2018 Time Seen by Provider: 07:10 Subjective/Events-last exam PT REPORTS THAT HER NAUSE HAS RESOLVED, SHE IS FEELING MUCH BETTER TODAY. SHE DENIES DIZINESS, CHEST PAIN OR SHORTNESS OF BREATH Review of Systems General: No Chills, No Fatigue Pulmonary: No Dyspnea, No Cough Cardiovascular: No: Chest Pain Gastrointestinal: No: Nausea Genitourinary: No Dysuria Neurological: Weakness Objective Exam Last Set of Vital Signs Vital Signs Date Time Temp Pulse Resp B/P (MAP) Pulse Ox O2 Delivery O2 Flow Rate FiO2 03/10/18 23:15 98.0 110 14 142/65 (90) 99 Nasal Cannula 4.00 Capillary Refill : I&O Intake and Output 03/11/18 00:00 Intake Total 640 ml Balance 640 ml Intake Oral 640 ml # Voids 4 # [place] 2 General: Alert, Oriented X3, Cooperative, No Acute Distress HEENT: PERRLA Neck: Supple Lungs: Clear to Auscultation Heart: Regular Rate Abdomen: Normal Bowel Sounds, Soft Extremities: Other (PLAR PACK IN PLACE LEFT KNEE - DOROTA HOSE ON BILATERAL LEGS) Neuro: Cranial Nerves 3-12 NL Psych/Mental Status: Mental Status NL, Mood NL Results Lab Laboratory Tests 03/10/18 07:07: Glucometer 245H 03/10/18 11:42: Glucometer 293H 03/10/18 16:42: Glucometer 294H 03/10/18 20:30: Glucometer 257H 03/11/18 05:58: Hemoglobin 9.1L, Hematocrit 28L Assessment/Plan Assessment/Plan Assess & Plan/Chief Complaint LEFT TOTAL KNEE REPLACEMENT HYPOTHYROIDISM DIABETES MELLITUS POST-OPERATIVE NAUSEA AND EMESIS POST-OPERATIVE ANEMIA LEFT TOTAL KNEE REPLACEMENT - DEFER TO DR. VELEZ HYPOTHYROIDISM - RESUME HOME MEDICATIONS DIABETES MELLITUS - RESUME HOME MEDICATIONS - CHECK SERIAL FSBS POST-OPERATIVE NAUSEA AND EMESIS - NOW RESOLVED. POST-OPERATIVE ANEMIA - STABLE PT REPORTS SHE WILL BE GOING TO STAY WITH HER GRANDSON UPON DISCHARGE Clinical Quality Measures DVT/VTE Risk/Contraindication: Risk Factor Score Per Nursin RFS Level Per Nursing on Admit: 4+=Very High RICHARD ROSARIO MD March 11, 2018 06:51
[2018-03-11] MEDS ORDERED: morphine INJ 4 MG/ML 1 ML (VIAL/SYRINGE) IVP PRN (07:00)
--- NOTE | 2018-03-11 07:02 | Progress Note-Standard ---
Standard Progress Note Progress Notes/Assess & Plan Date Seen by Provider: March 11, 2018 Time Seen by Provider: 07:00 Progress/Assessment & Plan POST OP check no complaints. denies paresthesias radiographs--HW well positioned. No fractures LLE--2 plus DP pulse with brisk cap refill. intact DF and PF of toes and ankle. Sensation intact throughout s/p LTKA mobilize as able Final Diagnosis reports no N/V through the night Vital Signs Date Time Temp Pulse Resp B/P (MAP) Pulse Ox O2 Delivery O2 Flow Rate FiO2 03/10/18 23:15 98.0 110 14 142/65 (90) 99 Nasal Cannula 4.00 03/10/18 20:00 99.7 121 16 114/56 (75) 100 Nasal Cannula 2.00 03/10/18 19:00 20 03/10/18 17:19 98.5 03/10/18 16:43 98.5 113 18 149/73 (98) 98 Nasal Cannula 2.00 03/10/18 12:00 98.5 114 20 150/67 (94) 95 Nasal Cannula 2.00 03/10/18 10:21 Nasal Cannula 3.00 03/10/18 08:45 Room Air 03/10/18 08:00 99.5 106 16 161/72 (101) 95 Nasal Cannula 2.00 I & O 03/11/18 07:00 Intake Total 540 ml Balance 540 ml Laboratory Tests Test 03/10/18 07:07 03/10/18 11:42 03/10/18 16:42 03/10/18 20:30 Range/Units Glucometer 245 H 293 H 294 H 257 H 70-110 MG/DL Test 03/11/18 05:58 Range/Units Hemoglobin 9.1 L 11.5-16.0 G/DL Hematocrit 28 L 35-52 % LLE--incision clean and dry. No calf tenderness. Neg Gwyn's. Neg SLR s/p LTKA progressing well continue PT/OT DC tomorrow if continues to progress CORDELIA VELEZ MD March 11, 2018 07:02
[2018-03-11 07:55] VITALS: BP 169/74
[2018-03-11] MEDS: CYANOCOBALAMIN 1,000 MCG (VITAMIN B-12) TABLET PO SCH (08:32)
[2018-03-11] MEDS: ASPIRIN E.C. 81 MG (ECOTRIN) TAB PO SCH (08:32)
[2018-03-11] MEDS: SENNA W/DOCUSATE (SENOKOT S) TABLET PO SCH ×2 (08:33→21:14)
[2018-03-11] MEDS: GLIMEPIRIDE 4 MG (AMARYL) TAB PO SCH (08:33)
[2018-03-11] MEDS: MULTIVIT W/MINERALS TAB (THERAGRAN M) PO SCH (08:33)
[2018-03-11] MEDS: LINAGLIPTIN (TRADJENTA) 5 MG TABLET PO SCH (08:33)
[2018-03-11] MEDS: inSUlin DETERMIR 1 UNIT/0.01 ML (LEVEMIR) CHARGE PER UNIT SQ SCH ×2 (08:34→21:14)
[2018-03-11] MEDS: ASPIRIN 81 MG CHEW (CHILDREN'S ASA) PO SCH (08:34)
[2018-03-11] MEDS: ENOXAPARIN 30 MG/0.3 ML (LOVENOX) SYR SC SCH ×2 (08:35→19:33)
--- NOTE | 2018-03-11 09:21 | Physical Therapy Daily Note ---
PT Daily Note-Current Subjective Patient agrees to PT. C/o 5/10 left knee pain. Pain Numeric Pain Scale: 5-Moderate Pain Location: Left Location Body Site: Knee Pain Description: Acute Mental Status Patient Orientation: Normal For Age Transfers Functional [place] Measure 0=Not Assessed/NA 4=Minimal Assistance 1=Total Assistance 5=Supervision or Setup 2=Maximal Assistance 6=Modified [place] 3=Moderate Assistance 7=Complete IndependenceIRFPAI Quality Coding Scale 6 Independent with activity with or without an assistive device 5 Patient requires set up or clean up by helper. Patient completes activity by themselves 4 Supervision or touching assist (CGA). [place] provide cues , steadying assist 3 The helper provides less than half the effort to complete the activity 2 The helper provides more than half the effort to complete the activity 1 Dependent. The helper does all the effort to complete an activity 7 Patient refused to complete or attempt activity 9 The patient did not perform the activity before the current illness or injury 88 Not attempted due to Medical conditions or safety concerns Transfers (B, C, W/C) (FIM): 4 Scootin Rollin Supine to/from Sit: 4 Sit to/from Stand: 4 Bed to/from Chair: 4 minimal assist for safety and due to weakness Weight Bearing Right Lower Extremity: Right Weight Bearing/Tolerated Left Lower Extremity: Left Weight Bearing/Tolerated Gait Training Gait (FIM): 2 Distance (FIM): 3=103-13 ft Distance: 75' Gait Level of Assist: 4 Gait Persons Needed: 1 Gait Assistive Device: FWW very slow, antalgic, step to gait sequence Exercises Supine Ex: Ankle pumps, Quad Set, Heel Slides, Straight leg raise Supine Reps: 15 (AAROM left LE) Seated Therapy Exercises: Ankle pumps, Long arc quads Seated Reps: 15 Assessment Patient is requiring 4L O2 NC due to decreased SAO2 during the night. During treatment, patient became "dizzy" and required sitting recovery period. HR 136 and SAO2 on 4L NC 99%. RN notified. Patient is progressing very slowly and may require extended stay. PT Short Term Goals Short Term Goals Time Frame: March 16, 2018 Transfers (B,C,W/C) (FIM): 5 Gait (FIM): 4 Gait Distance Comment: 150' Gait Assistive Device: FWW PT Plan Treatment/Plan Treatment Plan: Continue Plan of Care Treatment Plan: Bed Mobility, Education, Functional Activity Gillian, Functional Strength, Gait, Safety, Therapeutic Exercise, Transfers Treatment Duration: March 16, 2018 Frequency: At least 5 of 7 days/Wk (IRF) Estimated Hrs Per Day: 1.5 hours per day Patient and/or Family Agrees t: Yes Discharge Recommendations Therapy D/C Recommendations: Acute Rehab Time/GCodes Time In: 810 Time Out: 850 Total Billed Treatment Time: 40 Total Billed Treatment 1 visit EX x 2 25 min GT 15 min RAFFY MARIEE PT March 11, 2018 09:21
[2018-03-11 12:00] VITALS: BP 176/77
[2018-03-11] MEDS: oxyCODONE/APAP 5/325MG (PERCOCET 5) TABLET PO PRN ×2 (12:15→19:34)
[2018-03-11] MEDS ORDERED: ONDANSETRON 4 MG (ZOFRAN) ORAL DISSOLVE TAB PO PRN (14:00)
--- NOTE | 2018-03-11 15:11 | Physical Therapy Daily Note ---
PT Daily Note-Current Subjective Patient c/o 10/10 left knee pain with meds issued. Pain Numeric Pain Scale: 10-Worst Possible Pain Location: Left Location Body Site: Knee Pain Description: Acute Mental Status Patient Orientation: Normal For Age Transfers Functional [place] Measure 0=Not Assessed/NA 4=Minimal Assistance 1=Total Assistance 5=Supervision or Setup 2=Maximal Assistance 6=Modified [place] 3=Moderate Assistance 7=Complete IndependenceIRFPAI Quality Coding Scale 6 Independent with activity with or without an assistive device 5 Patient requires set up or clean up by helper. Patient completes activity by themselves 4 Supervision or touching assist (CGA). [place] provide cues , steadying assist 3 The helper provides less than half the effort to complete the activity 2 The helper provides more than half the effort to complete the activity 1 Dependent. The helper does all the effort to complete an activity 7 Patient refused to complete or attempt activity 9 The patient did not perform the activity before the current illness or injury 88 Not attempted due to Medical conditions or safety concerns Weight Bearing Right Lower Extremity: Right Weight Bearing/Tolerated Left Lower Extremity: Left Weight Bearing/Tolerated Exercises Supine Ex: Ankle pumps, Quad Set, Heel Slides, Straight leg raise, Hip abd/add Supine Reps: 15 (2 sets AAROM left LE/AROM right LE) Assessment CPM 0-70 degrees with polar pack in place. Patient tolerated treatment well and will transfer to ARU on 03/13/18 PT Short Term Goals Short Term Goals Time Frame: March 16, 2018 Transfers (B,C,W/C) (FIM): 5 Gait (FIM): 4 Gait Distance Comment: 150' Gait Assistive Device: FWW PT Plan Treatment/Plan Treatment Plan: Continue Plan of Care Treatment Plan: Bed Mobility, Education, Functional Activity Gillian, Functional Strength, Gait, Safety, Therapeutic Exercise, Transfers Treatment Duration: March 16, 2018 Frequency: At least 5 of 7 days/Wk (IRF) Estimated Hrs Per Day: 1.5 hours per day Patient and/or Family Agrees t: Yes Time/GCodes Time In: 1340 Time Out: 1410 Total Billed Treatment Time: 30 Total Billed Treatment 1 visit EX x 2 20 min RAFFY MARIEE PT March 11, 2018 15:11
[2018-03-11 16:00] VITALS: BP 135/78
--- NOTE | 2018-03-11 16:17 | Occupational Therapy Eval ---
OT Evaluation-General/PLF Medical Diagnosis Admission Date March 09, 2018 at 06:10 Medical Diagnosis: left TKA Onset Date: March 09, 2018 Therapy Diagnosis Therapy Diagnosis: decr self care, decr funct mobility, weakness Height/Weight Height (Feet): 5 Height (Inches): 0.00 Weight (Pounds): 163 Weight (Ounces): 9.0 Precautions Precautions/Isolations: Fall Prevention, Standard Precautions Safety Interventions: None Weight Bear Status Weight Bearing Restriction: Weight Bearing/Tolerated Referral Physician: Galen Flynn Referral Reason: Evaluation/Treatment Medical History Pertinent Medical History: DM, HTN, OA Additional Medical History Knee arthroscopy. back pain Current History Elective total knee Social History Home: Single Level Current Living Status: Alone Entry Into Home: Stairs With Railing Steps Into Home: 2 ADL-Prior Level of Function ADL PLOF Comments Pt reported that she has been able to manage all of her basic self care needs, complete tasks in the home (she has someone do her yard work). 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 She still drives OT Current Status Subjective Pt seen in room, up in bed, agreeable to OT. pain reported 5/10 but said she couldn't have any pain meds for a while Appearance Alert, cooperative Mental Status/Objective Attachments: IV, Oxygen, Polar Pack, Other-See Comments (CPM) Current Glasses/Contacts: Yes Hand Dominance: Right Upper Extremity ROM Grossly WFL bilat Upper Extremity Strength Grossly 4/5 bilat ADL-Treatment ADL-Current Pt reported that she has been able to feed herself and has been up to the bathroom with assistance by nursing. She is anticipating transferring to ARU on Wednesday for intensive therapy to be able to go home Functional [place] Measure 0=Not Assessed/NA 4=Minimal Assistance 1=Total Assistance 5=Supervision or Setup 2=Maximal Assistance 6=Modified [place] 3=Moderate Assistance 7=Complete IndependenceIRFPAI Quality Coding Scale 6 Independent with activity with or without an assistive device 5 Patient requires set up or clean up by helper. Patient completes activity by themselves 4 Supervision or touching assist (CGA). [place] provide cues , steadying assist 3 The helper provides less than half the effort to complete the activity 2 The helper provides more than half the effort to complete the activity 1 Dependent. The helper does all the effort to complete an activity 7 Patient refused to complete or attempt activity 9 The patient did not perform the activity before the current illness or injury 88 Not attempted due to Medical conditions or safety concerns Education OT Patient Education: Purpose of tx/functional activities, Rehab process Teaching Recipient: Patient Teaching Methods: Discussion Response to Teaching: Verbalize Understanding OT Short Term Goals Short Term Goals Transfers (B,C,W/C) (FIM): 5 OT Drying Room Attendant Goals Fdc Goals Time Frame: Apr 01, 2018 Eating (FIM): 6 Grooming(FIM): 6 Bathing(FIM): 6 Upper Body Dressing(FIM): 6 Lower Body Dressing(FIM): 6 Toileting(FIM): 6 Toilet/Commode Transfer(FIM): 6 Shower Transfer(FIM): 6 Additional Goals: 1-Demonstrate ADL Tasks, 2-Verbalize Understanding, 3- ImproveStrength/Gillian 1=Demonstrate adherence to instructed precautions during ADL tasks. 2=Patient will verbalize/demonstrate understanding of assistive devices/ modifications for ADL. 3=Patient will improve strength/tolerance for activity to enable patient to perform ADL's. OT Education/Plan Problem List/Assessment Assessment: Decreased UE Strength, Dependent Transfers, Impaired Funct Balance , Impaired Self-Care Skills Pt would benefit from skilled OT to increase her independence in basic self care to allow her to safely return to her home Discharge Recommendations Plan/Recommendations: Continue POC Treatment Plan/Plan of Care Treatment,Training & Education: Yes Patient would benefit from OT for education, treatment and training to promote independence in ADL's, mobility, safety and/or upper extremity function for ADL' s. Plan of Care: ADL Retraining, Functional Mobility, UE Funct Exercise/Act Treatment Duration: Apr 29, 2018 Frequency: 5 times per week Estimated Hrs Per Day: .5 hour per day Agreement: Yes Rehab Potential: Fair Time/GCodes Start Time: 15:05 Stop Time: 15:20 Total Time Billed (hr/min): 15 Billed Treatment Time visit, 15 minutes evaluation moderate intensity DEDRA CHAVEZ OT March 11, 2018 16:17
[2018-03-11] MEDS: inSUlin ASPART (NovoLOG) 1 UNIT/0.01 ML (CHARGE PER UNIT) SC SCH (17:50)
[2018-03-11 19:01] VITALS: BP 155/69
[2018-03-11] MEDS: SIMvastatin 20 MG (ZOCOR) TAB PO SCH (21:13)
[2018-03-12 00:25] VITALS: BP 132/60
[2018-03-12 04:04] VITALS: BP 111/52
[2018-03-12 04:32] LABS: HEMOGLOBIN 8.1 G/DL (11.5-16.0); MEAN PLATELET VOLUME 9.3 FL (7.4-10.4); RED BLOOD COUNT 2.46 10^6/uL (4.35-5.85); RED CELL DISTRIBUTION WIDTH 13.4 % (10.0-14.5)
[2018-03-12 05:32] LABS: ALANINE AMINOTRANSFERASE 11 U/L (0-55); ALBUMIN 2.9 GM/DL (3.2-4.5); ALKALINE PHOSPHATASE 51 U/L (40-136); BILIRUBIN,TOTAL 1.1 MG/DL (0.1-1.0); BUN/CREATININE RATIO 16; CALCIUM 8.5 MG/DL (8.5-10.1); CARBON DIOXIDE 25 MMOL/L (21-32); CHLORIDE 106 MMOL/L (98-107); CREATININE SERUM 0.81 MG/DL (0.60-1.30); GFR ESTIMATED > 60; SODIUM 140 MMOL/L (135-145); TOTAL PROTEIN 5.9 GM/DL (6.4-8.2)
[2018-03-12 05:52] LABS: GLUCOSE 51 MG/DL (70-105)
[2018-03-12] MEDS: MULTIVIT W/MINERALS TAB (THERAGRAN M) PO SCH (06:16)
[2018-03-12] MEDS: LEVOTHYROXINE 75 MCG (LEVOTHROID) TABLET PO SCH (06:16)
[2018-03-12] MEDS: CYANOCOBALAMIN 1,000 MCG (VITAMIN B-12) TABLET PO SCH (06:16)
[2018-03-12] MEDS: GLIMEPIRIDE 4 MG (AMARYL) TAB PO SCH (06:30)
[2018-03-12 08:00] VITALS: BP_SYST 114; BP_SYST 161; BP_DIAS 56; BP_DIAS 71
--- NOTE | 2018-03-12 08:19 | Progress Note-Standard ---
Standard Progress Note Progress Notes/Assess & Plan Date Seen by Provider: March 12, 2018 Time Seen by Provider: 08:18 Progress/Assessment & Plan POST OP check no complaints. denies paresthesias radiographs--HW well positioned. No fractures LLE--2 plus DP pulse with brisk cap refill. intact DF and PF of toes and ankle. Sensation intact throughout s/p LTKA mobilize as able Final Diagnosis No complaints Vital Signs Date Time Temp Pulse Resp B/P (MAP) Pulse Ox O2 Delivery O2 Flow Rate FiO2 03/12/18 04:04 97.9 93 17 111/52 (71) 97 Nasal Cannula 4.00 03/12/18 00:25 97.8 96 17 132/60 (84) 97 Nasal Cannula 4.00 03/11/18 21:14 100 Nasal Cannula 4.00 03/11/18 19:01 97.3 112 18 155/69 (97) 99 Nasal Cannula 4.00 03/11/18 16:00 98.0 110 20 135/78 (97) 99 03/11/18 12:00 99.3 110 20 176/77 (110) 100 Nasal Cannula 4.00 03/11/18 09:00 100 Nasal Cannula 4.00 03/11/18 08:20 Nasal Cannula 4.00 I & O 03/12/18 07:00 Intake Total 1840 ml Balance 1840 ml Laboratory Tests Test 03/11/18 10:58 03/11/18 15:53 03/11/18 21:02 03/12/18 04:03 Range/Units Glucometer 192 H 245 H 152 H 70-110 MG/DL White Blood Count 11.0 4.3-11.0 10^3/uL Red Blood Count 2.46 L 4.35-5.85 10^6/uL Hemoglobin 8.1 L 11.5-16.0 G/DL Hematocrit 25 L 35-52 % Mean Corpuscular Volume 100 H 80-99 FL Mean Corpuscular Hemoglobin 33 25-34 PG Mean Corpuscular Hemoglobin Concent 33 32-36 G/DL Red Cell Distribution Width 13.4 10.0-14.5 % Platelet Count 256 130-400 10^3/uL Mean Platelet Volume 9.3 7.4-10.4 FL Sodium Level 140 135-145 MMOL/L Potassium Level 3.0 L 3.6-5.0 MMOL/L Chloride Level 106 98-107 MMOL/L Carbon Dioxide Level 25 21-32 MMOL/L Anion Gap 9 5-14 MMOL/L Blood Urea Nitrogen 13 7-18 MG/DL Creatinine 0.81 0.60-1.30 MG/DL Estimat Glomerular Filtration Rate > 60 BUN/Creatinine Ratio 16 Glucose Level 51 *L 70-105 MG/DL Calcium Level 8.5 8.5-10.1 MG/DL Total Bilirubin 1.1 H 0.1-1.0 MG/DL Aspartate Amino Transf (AST/SGOT) 21 5-34 U/L Alanine Aminotransferase (ALT/SGPT) 11 0-55 U/L Alkaline Phosphatase 51 40-136 U/L Total Protein 5.9 L 6.4-8.2 GM/DL Albumin 2.9 L 3.2-4.5 GM/DL Test 03/12/18 05:10 03/12/18 05:37 Range/Units Glucometer 62 L 137 H 70-110 MG/DL LLE--dressing intact. No calf tenderness. Neg SLR s/p LTKA progressing well continue PT/OT DC to IRF tomorrow CORDELIA VELEZ MD March 12, 2018 08:19
[2018-03-12] MEDS: ENOXAPARIN 30 MG/0.3 ML (LOVENOX) SYR SC SCH ×2 (09:17→20:54)
[2018-03-12] MEDS: ASPIRIN 81 MG CHEW (CHILDREN'S ASA) PO SCH (09:17)
[2018-03-12] MEDS: ASPIRIN E.C. 81 MG (ECOTRIN) TAB PO SCH ×2 (09:17→11:17)
[2018-03-12] MEDS: inSUlin DETERMIR 1 UNIT/0.01 ML (LEVEMIR) CHARGE PER UNIT SQ SCH ×2 (09:17→20:53)
[2018-03-12] MEDS: SENNA W/DOCUSATE (SENOKOT S) TABLET PO SCH ×2 (09:17→20:52)
[2018-03-12] MEDS: LINAGLIPTIN (TRADJENTA) 5 MG TABLET PO SCH (09:20)
--- NOTE | 2018-03-12 10:39 | Progress Note-Hospitalist ---
Subjective HPI/CC On Admission Date Seen by Provider: March 12, 2018 Time Seen by Provider: 10:00 Subjective/Events-last exam Patient doing well today Had low sugar this morning so we'll hold glimepiride and lower the Lantus dose from 22-10 units at night Reviewed blood sugar log and she is just not eating as much as she usually does Denies any pain Recovery is slow and will go to inpatient rehabilitation tomorrow if stable Bowels are moving Review of Systems General: Malaise Musculoskeletal: leg pain Objective Exam Vital Signs Vital Signs Date Time Temp Pulse Resp B/P (MAP) Pulse Ox O2 Delivery O2 Flow Rate FiO2 03/12/18 16:00 Nasal Cannula 2.00 03/12/18 14:30 99.1 03/12/18 12:00 102 20 141/65 (90) 96 Capillary Refill : General Appearance: No Apparent Distress, WD/WN, Chronically ill Respiratory: Chest Non Tender, Lungs Clear Cardiovascular: Regular Rate, Rhythm, No Edema Extremity: No Pedal Edema Skin: Normal Color, Warm/Dry Results/Procedures Lab Laboratory Tests 03/12/18 04:03 Patient resulted labs reviewed. 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
[2018-03-12] MEDS: oxyCODONE/APAP 5/325MG (PERCOCET 5) TABLET PO PRN ×2 (11:18→20:54)
[2018-03-12 12:00] VITALS: BP 141/65
--- NOTE | 2018-03-12 13:45 | Physical Therapy Daily Note ---
PT Daily Note-Current Subjective Pt in chair, agreeable. 6-7/10 (L) knee pain rated. Mental Status Patient Orientation: Person, Place, Time, Situation Attachments: Polar Pack Transfers Functional [place] Measure 0=Not Assessed/NA 4=Minimal Assistance 1=Total Assistance 5=Supervision or Setup 2=Maximal Assistance 6=Modified [place] 3=Moderate Assistance 7=Complete IndependenceIRFPAI Quality Coding Scale 6 Independent with activity with or without an assistive device 5 Patient requires set up or clean up by helper. Patient completes activity by themselves 4 Supervision or touching assist (CGA). [place] provide cues , steadying assist 3 The helper provides less than half the effort to complete the activity 2 The helper provides more than half the effort to complete the activity 1 Dependent. The helper does all the effort to complete an activity 7 Patient refused to complete or attempt activity 9 The patient did not perform the activity before the current illness or injury 88 Not attempted due to Medical conditions or safety concerns Transfers (B, C, W/C) (FIM): 4 Supine to/from Sit: 4 Sit to/from Stand: 4 Toilet transfer with mod A x 1 Weight Bearing Right Lower Extremity: Right Weight Bearing/Tolerated Left Lower Extremity: Left Weight Bearing/Tolerated Gait Training Gait (FIM): 5 Distance (FIM): 3=150 ft Distance: 150 Gait Level of Assist: 5 Gait Persons Needed: 1 Gait Assistive Device: FWW Pt ambulated with slow, step-to gait with decreased stance time and knee flexion on (L). VCS for TKE, heel-toe gait. Exercises Supine Ex: Ankle pumps, Quad Set, Heel Slides Supine Reps: 20 Treatments Gait training with FWW, supine (L) knee ex. Placed in CPM -2-0-76 degrees, needs met. Assessment Current Status: Good Progress Pt tolerated very well. (+) SLR with lag, ROM improving steadily. PT Short Term Goals Short Term Goals Time Frame: March 16, 2018 Transfers (B,C,W/C) (FIM): 5 Gait (FIM): 4 Gait Distance Comment: 150' Gait Assistive Device: FWW PT Plan Problem List Problem List: Activity Tolerance, Functional Strength, Safety, Balance, Gait, Transfer, Bed Mobility, ROM Treatment/Plan Treatment Plan: Continue Plan of Care Treatment Plan: Bed Mobility, Education, Functional Activity Gillian, Functional Strength, Gait, Safety, Therapeutic Exercise, Transfers Treatment Duration: March 16, 2018 Frequency: At least 5 of 7 days/Wk (IRF) Estimated Hrs Per Day: 1.5 hours per day Patient and/or Family Agrees t: Yes Safety Risks/Education Patient Education: Gait Training Teaching Recipient: Patient Teaching Methods: Discussion Response to Teaching: Reinforcement Needed Time/GCodes Time In: 1037 Time Out: 1118 Total Billed Treatment Time: 41 Total Billed Treatment 1, GT x 28', Ex x 13' G Codes Necessary: No TRISH PETERSEN DPT March 12, 2018 13:45
[2018-03-12 15:25] VITALS: BP 141/65
[2018-03-12] MEDS: KCL 10 MEQ TAB (MICRO K) PO SCH (17:05)
[2018-03-12 19:05] VITALS: BP 153/65
[2018-03-12] MEDS: SIMvastatin 20 MG (ZOCOR) TAB PO SCH (20:52)
[2018-03-13] VITALS: BP 126/59
[2018-03-13 04:00] VITALS: BP 138/63
[2018-03-13] MEDS: oxyCODONE/APAP 5/325MG (PERCOCET 5) TABLET PO PRN ×2 (04:21→11:10)
[2018-03-13] MEDS: KCL 10 MEQ TAB (MICRO K) PO SCH (06:31)
[2018-03-13] MEDS: CYANOCOBALAMIN 1,000 MCG (VITAMIN B-12) TABLET PO SCH (06:31)
[2018-03-13] MEDS: LEVOTHYROXINE 75 MCG (LEVOTHROID) TABLET PO SCH (06:31)
[2018-03-13] MEDS: MULTIVIT W/MINERALS TAB (THERAGRAN M) PO SCH (06:31)
[2018-03-13] MEDS: ENOXAPARIN 30 MG/0.3 ML (LOVENOX) SYR SC SCH (07:56)
[2018-03-13] MEDS: ASPIRIN 81 MG CHEW (CHILDREN'S ASA) PO SCH (07:56)
[2018-03-13] MEDS: SENNA W/DOCUSATE (SENOKOT S) TABLET PO SCH (07:57)
[2018-03-13] MEDS: LINAGLIPTIN (TRADJENTA) 5 MG TABLET PO SCH (07:57)
[2018-03-13] MEDS: inSUlin DETERMIR 1 UNIT/0.01 ML (LEVEMIR) CHARGE PER UNIT SQ SCH (07:57)
[2018-03-13 08:00] VITALS: BP 136/60
--- NOTE | 2018-03-13 09:36 | Physical Therapy Daily Note ---
PT Daily Note-Current Subjective Pt up in chair, agreeable. No pain rating given. "I feel pretty good". Reports she has already been in the CPM this AM. Mental Status Patient Orientation: Person, Place, Time, Situation Transfers Functional [place] Measure 0=Not Assessed/NA 4=Minimal Assistance 1=Total Assistance 5=Supervision or Setup 2=Maximal Assistance 6=Modified [place] 3=Moderate Assistance 7=Complete IndependenceIRFPAI Quality Coding Scale 6 Independent with activity with or without an assistive device 5 Patient requires set up or clean up by helper. Patient completes activity by themselves 4 Supervision or touching assist (CGA). [place] provide cues , steadying assist 3 The helper provides less than half the effort to complete the activity 2 The helper provides more than half the effort to complete the activity 1 Dependent. The helper does all the effort to complete an activity 7 Patient refused to complete or attempt activity 9 The patient did not perform the activity before the current illness or injury 88 Not attempted due to Medical conditions or safety concerns Sit to/from Stand: 5 Weight Bearing Right Lower Extremity: Right Weight Bearing/Tolerated Left Lower Extremity: Left Weight Bearing/Tolerated Gait Training Gait (FIM): 5 Distance (FIM): 3=150 ft Distance: 150 Gait Level of Assist: 5 Gait Persons Needed: 1 Gait Assistive Device: FWW Pt ambulated with slow, step-through gait with (L) knee in flexion during stance and with decreased stance time on (L) LE. Exercises Supine Ex: Ankle pumps, Quad Set, Heel Slides, Straight leg raise Supine Reps: 15 Treatments Gait training with FWW and TKR ex. Pt returned to recliner with all needs met. Assessment Current Status: Good Progress Pt tolerated well. More reciprocal gait this date, ROM and strength improving. PT Short Term Goals Short Term Goals Time Frame: March 16, 2018 Transfers (B,C,W/C) (FIM): 5 Gait (FIM): 4 Gait Distance Comment: 150' Gait Assistive Device: FWW PT Plan Problem List Problem List: Activity Tolerance, Functional Strength, Balance, Gait, Transfer , Bed Mobility, ROM Treatment/Plan Treatment Plan: Continue Plan of Care Treatment Plan: Bed Mobility, Education, Functional Activity Gillian, Functional Strength, Gait, Safety, Therapeutic Exercise, Transfers Treatment Duration: March 16, 2018 Frequency: At least 5 of 7 days/Wk (IRF) Estimated Hrs Per Day: 1.5 hours per day Patient and/or Family Agrees t: Yes Safety Risks/Education Patient Education: Gait Training Teaching Recipient: Patient Teaching Methods: Discussion Response to Teaching: Reinforcement Needed Heel toe gait, TKE Time/GCodes Time In: 810 Time Out: 842 Total Billed Treatment Time: 32 Total Billed Treatment 1, GT x 20', Ex x 12' G Codes Necessary: TRISH Simmons DPQuynh March 13, 2018 09:36
--- NOTE | 2018-03-13 10:09 | Progress Note-Standard ---
Standard Progress Note Progress Notes/Assess & Plan Date Seen by Provider: March 13, 2018 Time Seen by Provider: 10:08 Progress/Assessment & Plan POST OP check no complaints. denies paresthesias radiographs--HW well positioned. No fractures LLE--2 plus DP pulse with brisk cap refill. intact DF and PF of toes and ankle. Sensation intact throughout s/p LTKA mobilize as able Final Diagnosis No complaints Vital Signs Date Time Temp Pulse Resp B/P (MAP) Pulse Ox O2 Delivery O2 Flow Rate FiO2 03/13/18 09:00 Room Air 03/13/18 08:00 98.2 98 18 136/60 (85) 97 Room Air 03/13/18 04:00 98.6 96 16 138/63 (88) 92 Room Air 03/13/18 00:00 99.3 101 18 126/59 (81) 93 Room Air 03/12/18 21:00 Room Air 03/12/18 19:05 98.1 102 18 153/65 (94) 92 Room Air 03/12/18 16:00 Nasal Cannula 2.00 03/12/18 15:25 98.6 99 18 141/65 (90) 98 Room Air 03/12/18 14:30 99.1 03/12/18 12:00 100.0 102 20 141/65 (90) 96 Nasal Cannula 2.00 I & O 03/13/18 07:00 Intake Total 1550 ml Balance 1550 ml Laboratory Tests Test 03/12/18 11:41 03/12/18 16:12 03/12/18 20:47 03/13/18 06:22 Range/Units Glucometer 207 H 192 H 182 H 76 70-110 MG/DL Left knee incision clean and dry. No calf tenderness. Neg Reny's s/p LTKA progressing well DC to IRF CORDELIA VELEZ MD March 13, 2018 10:09
--- NOTE | 2018-03-13 11:46 | Progress Note-Hospitalist ---
Objective Exam Vital Signs Vital Signs Date Time Temp Pulse Resp B/P (MAP) Pulse Ox O2 Delivery O2 Flow Rate FiO2 03/13/18 09:00 Room Air 03/13/18 08:00 98.2 98 18 136/60 (85) 97 03/12/18 16:00 2.00 Capillary Refill : Results/Procedures Lab Patient resulted labs reviewed. Assessment/Plan Assessment and Plan Assess & Plan/Chief Complaint Assessment: Status post left knee arthroplasty Slow recovery in need of inpatient rehabilitation Hypoglycemia will adjust meds Plan: Hold OHA and decrease Lantus from 22 units to 10 units at clinical laboratory director labs closely Diagnosis/Problems Diagnosis/Problems (1) Debility Status: Acute (2) Hypoglycemia Status: Acute (3) Osteoarthritis of left knee Status: Chronic Qualifiers: Osteoarthritis type: primary Qualified Codes: M17.12 - Unilateral primary osteoarthritis, left knee (4) IDDM (insulin dependent diabetes mellitus) Status: Chronic (5) Anemia due to blood loss, acute Status: Acute Clinical Quality Measures DVT/VTE Risk/Contraindication: Risk Factor Score Per Nursin RFS Level Per Nursing on Admit: 4+=Very High JASPAL BANSAL DO March 13, 2018 11:46
--- NOTE | 2018-03-13 17:21 | Discharge Summary-Hospitalist ---
Diagnosis/Chief Complaint Date of Admission March 09, 2018 at 06:10 Date of Discharge March 13, 2018 at 11:19 Discharge Diagnosis (1) Debility Status: Acute (2) Hypoglycemia Status: Acute (3) Osteoarthritis of left knee Status: Chronic (4) IDDM (insulin dependent diabetes mellitus) Status: Chronic (5) Anemia due to blood loss, acute Status: Acute Discharge Summary Discharge Physical Exam Allergies: Uncoded Allergies: STEROIDS (Allergy, Intermediate, 02/28/16) Vitals & I&Os Vital Signs Date Time Temp Pulse Resp B/P (MAP) Pulse Ox O2 Delivery O2 Flow Rate FiO2 03/13/18 09:00 Room Air 03/13/18 08:00 98.2 98 18 136/60 (85) 97 03/12/18 16:00 2.00 General Appearance: Alert, Oriented X3, Cooperative HEENT: Atraumatic, PERRLA Respiratory: Clear to Auscultation, Normal Air Movement Abdominal: Normal Bowel Sounds Neuro: Normal Gait, Normal Speech, Strength at 5/5 X4 Ext Psych/Mental Status: Mental Status NL, Mood NL Hospital Course Note from today: Patient doing much better and settled into inpatient rehabilitation unit after [facility] course Denies any other significant problems Bowels are moving Hospital course: Patient had a brief Hospital course she underwent an uncomplicated left total knee replacement but had slow recovery complicated with nausea and vomiting and postop anemia with hypoglycemic episodes. She was found to be in need of inpatient rehabilitation prior to discharge and she was transferred to inpatient rehabilitation without complication on 02/11/18. Labs (last 24 hrs) Laboratory Tests 03/12/18 20:47: Glucometer 182H 03/13/18 06:22: Glucometer 76 03/13/18 11:21: Glucometer 186H 03/13/18 16:27: Glucometer 206H Patient resulted labs reviewed. Pending Labs Laboratory Tests 03/13/18 11:21: Glucometer 186 03/13/18 16:27: Glucometer 206 Discussion & Recommendations Discharge Planning: <30 minutes discharge planning Discharge Home Medications: Active Scripts Active Reported Januvia (Sitagliptin Phosphate) 100 Mg Tablet 50 Mg PO DAILY Glimepiride 4 Mg Tablet 4 Mg PO DAILY Meclizine HCl 25 Mg Tablet 25 Mg PO TID Aspirin 81 Mg Tab.chew 81 Mg PO DAILY Simvastatin 20 Mg Tablet 20 Mg PO HS Levothyroxine Sodium 75 Mcg Tablet 75 Mcg PO DAILY Vitamin B-12 (Cyanocobalamin (Vitamin B-12)) 1,000 Mcg Tablet 1,000 Mcg PO DAILY Novolog (Insulin Aspart) 100 Unit/1 Ml Susp 12 Unit SQ EVENING MEAL Levemir (Insulin Determir) 1,000 Units/10 Ml Soln 22 Units SQ Q12H Instructions to patient/family Please see electronic discharge instructions given to patient. Clinical Quality Measures DVT/VTE Risk/Contraindication: Risk Factor Score Per Nursin RFS Level Per Nursing on Admit: 4+=Very High Problem Qualifiers (1) Osteoarthritis of left knee: Osteoarthritis type: primary Qualified Codes: M17.12 - Unilateral primary osteoarthritis, left knee JASPAL BANSAL DO March 13, 2018 17:21
--- NOTE | 2018-03-13 17:50 | DISCHARGE SUMMARY ---
DATE OF SERVICE: DISCHARGE DIAGNOSES: 1. Left knee primary osteoarthritis. 2. Allergic rhinitis. 3. Back pain. 4. Diabetes type 2. 5. Hyperlipidemia. 6. Hypertension. CONSULTANTS: Physical therapy, occupational therapy and Dr. Díaz. HOSPITAL COURSE: The patient is an 78-year-old female who underwent a left total knee arthroplasty on the day of admission. Postoperatively, she did well. Her wound was clean and dry. She had no calf tenderness. Negative Homans sign. She was progressing well with physical therapy. She was tolerating diet well and tolerating pain with oral pain medication. CONDITION AT DISCHARGE: Good. DISCHARGE DISPOSITION: He is transferred to the inpatient rehabilitation unit for continued physical and occupational therapy. Job ID: [id number] DocumentID: [id number] Dictated Date: 03/13/2018 10:11:20 [employer] Date: 03/13/2018 17:49:45 Dictated By: CORDELIA VELEZ MD
[2018-03-13] MEDS ORDERED: ASPIRIN E.C. 81 MG (ECOTRIN) TAB PO SCH (21:00)
[2018-03-17] MEDS ORDERED: OXYC-471 PO (09:01)
[2018-03-17] MEDS ORDERED: POTA10TA6 PO (09:01)
[2018-03-17] MEDS ORDERED: SENN-20 PO (09:01)
[2018-03-18] MEDS ORDERED: SULF1TAB35 PO (09:23)
== END 2018-03-13 11:19 | DRG 470 ==
LOC: 4TH 06:10 → SURG 06:11 → 4TH 09:48
PROVIDERS: ADMIT Orthopaedic Surgery; ATTEND Orthopaedic Surgery
PROC: 0SRD0J9 Replacement of Left Knee Joint with Synthetic Substitute, Cemented, Open Approach (ICD-10-PCS; principal; 2018-03-09 07:32)
DX: M17.12 Unilateral primary osteoarthritis, left knee (principal); D62 Acute posthemorrhagic anemia; E11.649 Type 2 diabetes mellitus with hypoglycemia without coma; E78.5 Hyperlipidemia, unspecified; I10 Essential (primary) hypertension; J30.9 Allergic rhinitis, unspecified; M54.9 Dorsalgia, unspecified; E03.9 Hypothyroidism, unspecified; R11.2 Nausea with vomiting, unspecified; Z79.4 Long term (current) use of insulin
CPT/HCPCS: 36415; 73560; 80053; 82962; 85014; 85018; 85027; 86850; 86900; 86901; 94640

== ENCOUNTER → 2018-11-25 | Outpatient (CLI) | payer MEDICARE, OTHER ==
[~2018-11-25] MED LIST changes: +OXYC-471 PO; +OXYC1TAB87 PO; +POTA10TA6 PO; +SENN-20 PO; +SULF1TAB35 PO
--- NOTE | 2018-11-25 17:27 | Diagnostic Imaging Report ---
INDICATION: Routine screening. COMPARISON: Prior mammogram from 11/22/2017 and 11/20/2016. FINDINGS: 2D and 3D bilateral screening mammography was performed with CAD. The current study was also evaluated with a Computer Aided Detection (CAD) system. FINDINGS: Both breasts are heterogeneously dense, limiting the sensitivity of mammography. Scattered benign-appearing parenchymal and vascular calcifications are identified, bilaterally. Nodular density in the outer left breast is again noted and appears stable. No new mass or malignant appearing microcalcifications are seen. The axillae are unremarkable. IMPRESSION: No mammographic features suspicious for malignancy are identified. ACR BI-RADS Category 2: Benign findings. Result letter will be mailed to the patient. Note: At least 10% of breast cancer is not imaged by mammography. Dictated on workstation # [id number]
== END ==
LOC: RAD 09:08
PROVIDERS: ATTEND Nurse Practitioner Family
DX: Z12.31 Encounter for screening mammogram for malignant neoplasm of breast (principal)
CPT/HCPCS: 77067

== ENCOUNTER → 2019-11-27 | Outpatient (CLI) | payer MEDICARE, OTHER ==
[~2019-11-27] MED LIST changes: +CYAN-41 PO; -CYAN10006 PO; +GLIM4TAB3 PO; +SIMV20TA26 PO; -SIMV20TA3 PO
--- NOTE | 2019-11-27 10:29 | Diagnostic Imaging Report ---
INDICATION: Routine screening. Comparison is made with prior mammogram from 11/25/2018 and 11/22/2017. 2-D and 3-D bilateral screening mammography was performed with CAD. Both breasts remain heterogeneously dense, limiting the sensitivity of mammography. There are benign parenchymal and vascular calcifications bilaterally. Circumscribed benign densities in the upper outer left breast are stable. No new mass or malignant-appearing microcalcifications are seen. Axillae are unremarkable. IMPRESSION: BI-RADS Category 2 No mammographic features suspicious for malignancy are identified. Dictated by: Dictated on workstation # [id number]
== END ==
LOC: RAD 08:58
PROVIDERS: ATTEND Nurse Practitioner Family
DX: Z12.31 Encounter for screening mammogram for malignant neoplasm of breast (principal)
CPT/HCPCS: 77067

== ENCOUNTER → 2020-11-28 | Outpatient (CLI) | payer MEDICARE, OTHER ==
[~2020-11-28] MED LIST changes: -GLIM4TAB3 PO; +GLIM4TAB5 PO; -MECL-106 PO; +MECL-149 PO
--- NOTE | 2020-11-28 14:25 | Diagnostic Imaging Report ---
INDICATION: Routine screening. Comparison is made prior mammogram 11/27/2019 and 11/25/2018. 2-D and 3-D bilateral screening mammography was performed with CAD. Both breasts remain heterogeneously dense, limiting the sensitivity of mammography. Nodule left breast is stable. There are benign vascular and parenchymal calcifications bilaterally. No spiculated mass or malignant appearing microcalcifications are seen. Axillae are unremarkable. IMPRESSION: BI-RADS Category 2 No mammographic features suspicious for malignancy are identified. ACR BI-RADS Category 2: Benign findings. Result letter will be mailed to the patient. Note: At least 10% of breast cancer is not imaged by mammography. Dictated by: Dictated on workstation # [id number]
== END ==
LOC: RAD 10:12
PROVIDERS: ATTEND Nurse Practitioner Family
DX: Z12.31 Encounter for screening mammogram for malignant neoplasm of breast (principal)
CPT/HCPCS: 77063; 77067

== ENCOUNTER → 2021-12-01 | Outpatient (CLI) | payer MEDICARE, OTHER ==
[~2021-12-01] MED LIST changes: -OXYC-471 PO; +OXYC1TAB11 PO; +POTA-160 PO; -POTA10TA6 PO; -SULF1TAB35 PO; +SULF1TAB38 PO
--- NOTE | 2021-12-01 12:54 | Diagnostic Imaging Report ---
INDICATION: Routine screening. Comparison is made with prior mammogram from 11/28/2020 and 11/27/2019. 2-D and 3-D bilateral screening mammography was performed with CAD. Both breasts are heterogeneously dense, limiting the sensitivity of mammography. Benign parenchymal and vascular calcifications again noted bilaterally. Circumscribed density left breast are stable. No spiculated mass or malignant-appearing microcalcifications are seen. Axillae are unremarkable. IMPRESSION: No mammographic features suspicious for malignancy are identified. BI-RADS Category 2 ACR BI-RADS Category 2: Benign findings. Result letter will be mailed to the patient. Note: At least 10% of breast cancer is not imaged by mammography. Dictated by: Dictated on workstation # [id number]
== END ==
LOC: RAD 09:30
PROVIDERS: ATTEND Nurse Practitioner Family
DX: Z12.31 Encounter for screening mammogram for malignant neoplasm of breast (principal)
CPT/HCPCS: 77063; 77067

== ENCOUNTER → 2022-03-24 | Outpatient (CLI) | payer MEDICARE, OTHER ==
--- NOTE | 2022-03-24 16:49 | Diagnostic Imaging Report ---
INDICATION: Postmenopausal screening COMPARISON: 05/13/2012 FINDINGS: AP Spine L1-L4: [BMD (g/cm2): 1.228] [T-Score: 0.2] [Z-Score: 1.8] [BMD Previous: 1.377] [BMD % Change: -10.8%] LT Hip Neck: [BMD (g/cm2): 0.949] [T-Score: -0.6] [Z-Score: 1.5] LT Hip Total: [BMD (g/cm2):1.053] [T-Score:0.4] [Z-Score: 2.3] [BMD Previous: 1.116] [BMD % Change: -5.6%] RT Hip Neck: [BMD (g/cm2):1.104] [T-Score:0.5] [Z-Score:2.6] RT Hip Total: [BMD (g/cm2):1.117] [T-score:0.9] [Z-Score:2.8] [BMD Previous:1.174] [BMD % Change:-4.9%] *Indicates significant change from prior examination based on 95% confidence level. World Health Organization criteria for BMD interpretation classify patients as Normal (T-score at or above -1.0), Osteopenic (T-score between -1.0 and -2.5) or Osteoporotic (T-score at or below -2.5). LIMITATIONS AND MODIFICATION: None. FRACTURE RISK (FRAX SCORE): The ten year probability of (%): Major Osteoporotic Fracture: [N/A] Hip Fracture: [N/A] IMPRESSION: 1. Normal bone mineral density. 2. no significant interval change 3. See below National Osteoporosis Foundation guidelines on when to potentially initiate pharmacologic therapy. Based on the National Osteoporosis Foundation Guidelines, pharmacologic treatment should be initiated in any of the following, unless clinical conditions suggest otherwise: * Any patient with prior fragility fracture of the hip or vertebrae. A spine fracture indicates 5X risk for subsequent spine fracture and 2X risk for subsequent hip fracture. * Osteoporosis (T-score <-2.5). * Postmenopausal women and men age 50 and older with low bone mass/osteopenia (T-score between -1.0 and -2.5) by DXA and 10-year major osteoporotic fracture greater than 20% or a 10-year probability of hip fracture greater than 3%. These fracture risks are supplied above in the FRAX score, if applicable. * Clinician judgement and/or patient preferences may indicate treatment for people with 10-year fracture probabilities above or below these levels. Dictated by: Dictated on workstation # [id number]
== END ==
LOC: RAD 13:00
PROVIDERS: ATTEND Nurse Practitioner Family
DX: Z13.820 Encounter for screening for osteoporosis (principal); N95.9 Unspecified menopausal and perimenopausal disorder
CPT/HCPCS: 77080

== ENCOUNTER → 2022-12-08 | Outpatient (CLI) | payer MEDICARE, OTHER ==
--- NOTE | 2022-12-08 16:14 | Diagnostic Imaging Report ---
INDICATION: Routine screening. Comparison is made prior mammogram from 12/01/2021 and 11/28/2020. 2-D and 3-D bilateral screening mammography was performed with CAD. Both breasts are heterogeneously dense, limiting the sensitivity of mammography. A density in the inferior left breast appears slightly more prominent on today's study. Additional views recommended. Scattered benign parenchymal and vascular calcifications bilaterally. Axillae are unremarkable. IMPRESSION: Left breast density. Additional views recommended for further evaluation. ACR BI-RADS Category 0: Incomplete. (Needs additional imaging evaluation). Result letter will be mailed to the patient. Note: At least 10% of breast cancer is not imaged by mammography. BI-RADS 0 Dictated by: Dictated on workstation # [id number]
== END ==
PROVIDERS: ATTEND Family Medicine
DX: Z12.31 Encounter for screening mammogram for malignant neoplasm of breast (principal)
CPT/HCPCS: 77063; 77067

== ENCOUNTER → 2022-12-10 | Outpatient (CLI) | payer MEDICARE, OTHER ==
--- NOTE | 2022-12-10 13:32 | Diagnostic Imaging Report ---
Indication: Abnormal mammogram. Study is performed for further evaluation. Correlation is made with screening mammogram from 12/08/2022 and a diagnostic mammogram from 12/10/2022. Interrogation of the inferior left breast was performed. There is a simple cyst at the 6:00 location, 4 cm from the nipple measuring 1.0 x 0.8 x 0.9 cm. This shows posterior acoustic enhancement. No internal vascularity is seen. No solid lesions are identified. IMPRESSION: BI-RADS Category 2 Simple cyst at the 6:00 location left breast, corresponding to the mammographic density. The patient may return to routine annual screening mammography. ACR BI-RADS Category 2: Benign findings. Result letter will be mailed to the patient. Note: At least 10% of breast cancer is not imaged by mammography. Dictated by: Dictated on workstation # [id number]
--- NOTE | 2022-12-10 16:22 | Diagnostic Imaging Report ---
Indication: Left breast density. Patient presents for additional views. Correlation is made with screening mammogram from 12/08/2022. Unilateral left 2-D and 3-D diagnostic mammography was performed. This includes spot compression CC and MLO views as well as conventional 90 degree lateral views. There is a persistent density in the left breast projected just lateral to the nipple line on the spot compression CC view and approximately 5 cm from the nipple. This appears to be inferiorly located but not as well visualized on the lateral view. There is some residual density noted on the spot compression MLO view. IMPRESSION: BI-RADS 0 Persistent density in the inferior left breast approximately 5 cm from the nipple. Further evaluation with ultrasound of this area is recommended and will be performed today. ACR BI-RADS Category 0: Incomplete. (Needs additional imaging evaluation). Result letter will be mailed to the patient. Note: At least 10% of breast cancer is not imaged by mammography. Dictated by: Dictated on workstation # [id number]
== END ==
LOC: RAD 13:15
PROVIDERS: ATTEND Family Medicine
DX: N60.02 Solitary cyst of left breast (principal)
CPT/HCPCS: 76642; 77065; G0279